=== PATIENT | female | born 1945 | race Caucasian/White ===

== ENCOUNTER 2023-05-09 16:41 | Inpatient (IN) | payer MEDICARE, OTHER, SELFPAY ==
[2023-05-09] VITALS (13 sets, daily range): BP systolic 110–152; BP diastolic 40–79; BMI 29.2; BMI 28.4
[2023-05-09 12:03] LABS: % Basophils 0.1 % (0-2); % Eosinophils 0.1 % (0-6); % Lymphocytes 1.9 % (20.5-51.1); % Monocytes 13.6 % (1.7-9.3); % Neutrophils 82.3 % (42.2-75.2); Absolute Immature Granulocytes 0.4 10^3/uL (0-0.05); Absolute Lymphocytes 0.4 10^3/uL (1.2-3.4); Absolute Monocytes 2.6 10^3/uL (0.1-0.6); Absolute Neutrophils 15.7 10^3/uL (1.4-6.5); Hematocrit 36.8 % (37.0-47.0); Hemoglobin 12.6 g/dL (12.0-16.0); Mean Corp Hgb Conc. 34.2 g/dL (33.0-37.0); Mean Corpuscular Hgb 31.3 pg (27.0-31.0); Mean Corpuscular Volume 91.5 fL (81.0-99.0); Mean Platelet Volume 12.5 fL (7.4-10.4); Nucleated Red Blood Cells % 0 %; Platelet Count 101 10^3/uL (130-400); Red Blood Cell Count 4.02 10^6/uL (4.20-5.40); Red Cell Dist. Width 14.6 % (11.5-14.5); White Blood Cell Count 19.1 10^3/uL (4.8-10.8)
[2023-05-09 12:44] LABS: ALT (SGPT) 17 U/L (0-35); AST (SGOT) 21 U/L (14-36); Albumin 4.5 g/dl (3.5-5.0); Alkaline Phosphatase 64 U/L (38-126); Blood Urea Nitrogen 15 mg/dl (7-17); Calcium 9.2 mg/dl (8.4-10.2); Carbon Dioxide 14 mmol/L (22-30); Chloride 106 mmol/L (98-107); Glucose 158 mg/dl (70-99); Potassium 3.4 mmol/L (3.5-5.1); Sodium 133 mmol/L (135-145); Total Bilirubin 1.6 mg/dl (0.2-1.3); Total Protein 7.1 g/dl (6.3-8.2); eGFR 38.27
--- NOTE | 2023-05-09 12:59 | ED.GENMED ---
History of Present Illness
<MARIA E Miles - Last Filed: 05/09/23 16:11>
General
Chief Complaint: Weakness
Source: patient
Exam Limitations: none
Time Seen by Provider: 05/09/23 12:59
Nursing documentation reviewed up to this point in time: agreed with
Travel History
Have you had any contact with someone who has COVID-19?: No
Do you have any symptoms of coronavirus? Fever > 100 degrees, chills, cough, shortness of breath, sore throat, loss of taste or smell, muscle aches, or headache?: No
History of Present Illness
History of Present Illness:
Patient is a 77 old female who presents to the ER for evaluation. Patient reports on Tuesday she started not feeling well and has been vomiting since unable to keep water down. She feels very weak. She does report that she fell 1 week ago and
landed face first and hit her head. Describes as mechanical fall. She is on blood thinners. She denies loss of conscious at that time. Since however she has been sick she has had headaches.
She complains of bruising to her face.
In addition she also has had a cough for the past 1 week. No fevers.
Past History
<MARIA E Miles - Last Filed: 05/09/23 16:11>
Past History
ED Past Medical History: Cancer, HTN, Hypercholesterolemia and Other (Multiple myeloma/remission)
ED Past Surgical History: Gynecological and Urological
Social History
Tobacco: Former smoker
Alcohol: None
Drug: None
Personal:
Living: with family
Review of Systems
<MARIA E Miles - Last Filed: 05/09/23 16:11>
Review of Systems
Allergies reviewed?: Yes
Other source history: family
All Other Systems: ROS reviewed and negative except as documented in HPI and ROS
Constitutional: Reports fatigue and chills
EENT: Reports no symptoms
Respiratory: Reports cough
Cardiac: Reports no symptoms
ABD/GI: Reports nausea and vomiting; Denies abdominal pain or diarrhea
: Reports no symptoms
Musculoskeletal: Reports other (bruising to face )
Skin: Reports no symptoms
Neurological: Reports no symptoms
Hematologic/Lymphatic: Reports no symptoms
Psychiatric: Reports no symptoms
Phy Exam
<MARIA E Miles - Last Filed: 05/09/23 16:11>
General Physical Exam
General Presentation: no apparent distress
General age: appears stated age
General Skin: warm and dry
General Habitus: elderly
General Mental: alert
General Hydration: dry mucous membranes
Cardiovascular Exam
Cardiovascular Exam: tachycardia
Pulmonary Exam
Pulmonary Exam: lungs clear and no respiratory distress
Gastrointestinal Exam
Gastrointestinal Exam: normal bowel sounds, non tender and soft
Neurological Exam
Neurological Exam: alert and oriented x3
Cornwall Coma Scale
Eye Opening: Spontaneous
Verbal Response: Oriented
Motor Response: Obeys Commands
GCS Total Score: 15
Musculoskeletal Exam
Musculoskeletal Exam: other (Scattered ecchymosis old appearing to face no obvious hematoma to head mild bruising to left anterior knee with good range of motion)
Skin Exam
Skin Exam: normal color and warm/dry
Psychiatric Exam
Psychiatric Exam: normal mood/affect
<Mian Francisco MD - Last Filed: 05/09/23 19:14>
Cornwall Coma Scale
GCS Total Score: 15
Course
<MARIA E Miles - Last Filed: 05/09/23 16:11>
Orders/Labs/Results
Orders:
Orders
05/09/23 11:43
Electrocardiogram (*1) Urgent
Reason for Study: Bradycardia / Tachycardia
EKG- Treatment ONCE
05/09/23 11:52
Complete Blood Count/With Diff Urgent
Comprehensive Metabolic Panel Urgent
05/09/23 13:18
0.9% Sodium Chloride 1000 ml [Nss] 1,000 ml IV BOLUS
05/09/23 13:19
Chest [CR Chest - 2 Views ] Urgent
Comment:
Reason For Exam: cough
05/09/23 13:21
CT Facial Bones W/o Iv Contras Urgent
Comment:
Reason For Exam: trauma
CT Head W/o Iv Contrast Urgent
Comment:
Reason For Exam: trauma
Ondansetron Injectable [Zofran] 4 mg IV NOW STA
05/09/23 13:38
Knee, Left 4 or More Views [CR Knee - Left 4 Or More View*] Urgent
Comment:
Reason For Exam: trauma
05/09/23 14:33
Blood Culture Q30M
BRE Source: Blood/Venous
Specimen Description:
Acetaminophen [Tylenol] 650 mg PO NOW STA
05/09/23 14:39
COVID-19 Antigen Urgent
Source: Nasal Swab
Influenza A+B Rapid Molecular Urgent
BRE Source: Nasal Swab
Specimen Description:
05/09/23 15:03
Lactic Acid Q4H
Comment: CANCEL 2nd LACTIC ACID IF 1st LACTIC ACID IS LESS THAN 2
Blood Culture Q30M
BRE Source: Blood/Venous
Specimen Description:
05/09/23 15:14
0.9% Sodium Chloride 1000 ml [Nss] 1,000 ml IV BOLUS
05/09/23 15:20
UA Reflex to Culture [Urinalysis Reflex To Culture] Urgent
Date Specimen was Collected: 05/09/23
Time Specimen was Collected: 15:16
Urine Microscopic Reflex Cult Urgent
Urine Culture Urgent
BRE Source: U
Specimen Description:
Date Specimen was Collected: 05/09/23
Time Specimen was Collected: 15:16
05/09/23 15:59
Azithromycin 500 mg/250 ml [Zithromax Infusion] 500 mg in 250 ml IV NOW
CefTRIAXone [Rocephin] 1,000 mg IV NOW STA
05/09/23 16:29
Admit/Transfer Patient As Directed
Co-Sign Provider:
Level of Care: Inpatient admission
Assign to:: Medical/Surgical
Physician / Group: jose enrique
Diagnosis: pneumonia
Reason for Hospitalization: pneumonia
Expected length of stay greater than two midnights?: Yes
ELOS- Estimated Length of Stay in days: 2
I certify the patient meets the requirements for IP care: Yes
Code Status As Directed
Resuscitation Status: Full Code
05/09/23 16:32
Respiratory Culture/Gram Stain Urgent
BRE Source: Sputum
Specimen Description:
Sodium Bicarbonate 50 meq IV NOW STA
05/09/23 16:33
Potassium Chloride [KCl] 40 meq 0.9% Sodium Chloride 250 ml [Nss] 250 ml IV NOW
Abnormal Lab Results
05/09/23 05/09/23
11:52 15:20
WBC 19.1 H 10^3/uL
(4.8-10.8)
RBC 4.02 L 10^6/uL
(4.20-5.40)
Hct 36.8 L %
(37.0-47.0)
MCH 31.3 H pg
(27.0-31.0)
RDW 14.6 H %
(11.5-14.5)
Plt Count 101 L 10^3/uL
(130-400)
MPV 12.5 H fL
(7.4-10.4)
Abs Immat Gran (auto) 0.4 H 10^3/uL
(0-0.05)
Absolute Neuts (auto) 15.7 H 10^3/uL
(1.4-6.5)
Absolute Lymphs (auto) 0.4 L 10^3/uL
(1.2-3.4)
Absolute Monos (auto) 2.6 H 10^3/uL
(0.1-0.6)
Immature Gran % 2.0 H %
(0-0.5)
Neutrophils % 82.3 H %
(42.2-75.2)
Lymphocytes % 1.9 L %
(20.5-51.1)
Monocytes % 13.6 H %
(1.7-9.3)
Sodium 133 L mmol/L
(135-145)
Potassium 3.4 L mmol/L
(3.5-5.1)
Carbon Dioxide 14 L* mmol/L
(22-30)
Creatinine 1.4 H mg/dL
(0.6-1.0)
Glucose 158 H mg/dl
(70-99)
Total Bilirubin 1.6 H mg/dl
(0.2-1.3)
Urine Ketones 3+ A
(Negative)
Ur Occult Blood Reflex 3+ A
(Negative)
Urine Bacteria (Reflex) Moderate A
(Negative)
Urine Glucose 3+ A
(Negative)
Urine Albumin (Reflex) 2+ A
(Neg - Trace)
05/09/23 11:52
05/09/23 11:52
Vital Signs
Initial and Last Documented VS:
Initial Vital Signs
Temp Pulse Resp BP Pulse Ox
98.0 F 128 20 142/71 93
05/09/23 11:40 05/09/23 11:40 05/09/23 11:40 05/09/23 11:40 05/09/23 11:40
Last Documented Vital Signs
Temp Pulse Resp BP Pulse Ox
98.0 F 97 22 110/49 95
05/09/23 11:40 05/09/23 17:30 05/09/23 14:03 05/09/23 17:01 05/09/23 17:30
Quality Control Representative consulted with Physician
Quality Control Representative consulted with physician?: Yes
Name of Physician Consulted: [email or web address]
<Mian Francisco MD - Last Filed: 05/09/23 19:14>
Orders/Labs/Results
Orders:
Orders
05/09/23 11:43
Electrocardiogram (*1) Urgent
Reason for Study: Bradycardia / Tachycardia
EKG- Treatment ONCE
05/09/23 11:52
Complete Blood Count/With Diff Urgent
Comprehensive Metabolic Panel Urgent
05/09/23 13:18
0.9% Sodium Chloride 1000 ml [Nss] 1,000 ml IV BOLUS
05/09/23 13:19
Chest [CR Chest - 2 Views ] Urgent
Comment:
Reason For Exam: cough
05/09/23 13:21
CT Facial Bones W/o Iv Contras Urgent
Comment:
Reason For Exam: trauma
CT Head W/o Iv Contrast Urgent
Comment:
Reason For Exam: trauma
Ondansetron Injectable [Zofran] 4 mg IV NOW STA
05/09/23 13:38
Knee, Left 4 or More Views [CR Knee - Left 4 Or More View*] Urgent
Comment:
Reason For Exam: trauma
05/09/23 14:33
Blood Culture Q30M
BRE Source: Blood/Venous
Specimen Description:
Acetaminophen [Tylenol] 650 mg PO NOW STA
05/09/23 14:39
COVID-19 Antigen Urgent
Source: Nasal Swab
Influenza A+B Rapid Molecular Urgent
BRE Source: Nasal Swab
Specimen Description:
05/09/23 15:03
Lactic Acid Q4H
Comment: CANCEL 2nd LACTIC ACID IF 1st LACTIC ACID IS LESS THAN 2
Blood Culture Q30M
BRE Source: Blood/Venous
Specimen Description:
05/09/23 15:14
0.9% Sodium Chloride 1000 ml [Nss] 1,000 ml IV BOLUS
05/09/23 15:20
UA Reflex to Culture [Urinalysis Reflex To Culture] Urgent
Date Specimen was Collected: 05/09/23
Time Specimen was Collected: 15:16
Urine Microscopic Reflex Cult Urgent
Urine Culture Urgent
BRE Source: U
Specimen Description:
Date Specimen was Collected: 05/09/23
Time Specimen was Collected: 15:16
05/09/23 15:59
Azithromycin 500 mg/250 ml [Zithromax Infusion] 500 mg in 250 ml IV NOW
CefTRIAXone [Rocephin] 1,000 mg IV NOW STA
05/09/23 16:29
Admit/Transfer Patient As Directed
Co-Sign Provider:
Level of Care: Inpatient admission
Assign to:: Medical/Surgical
Physician / Group: jose enrique
Diagnosis: pneumonia
Reason for Hospitalization: pneumonia
Expected length of stay greater than two midnights?: Yes
ELOS- Estimated Length of Stay in days: 2
I certify the patient meets the requirements for IP care: Yes
Code Status As Directed
Resuscitation Status: Full Code
05/09/23 16:32
Respiratory Culture/Gram Stain Urgent
BRE Source: Sputum
Specimen Description:
Sodium Bicarbonate 50 meq IV NOW STA
05/09/23 16:33
Potassium Chloride [KCl] 40 meq 0.9% Sodium Chloride 250 ml [Nss] 250 ml IV NOW
Abnormal Lab Results
05/09/23 05/09/23
11:52 15:20
WBC 19.1 H 10^3/uL
(4.8-10.8)
RBC 4.02 L 10^6/uL
(4.20-5.40)
Hct 36.8 L %
(37.0-47.0)
MCH 31.3 H pg
(27.0-31.0)
RDW 14.6 H %
(11.5-14.5)
Plt Count 101 L 10^3/uL
(130-400)
MPV 12.5 H fL
(7.4-10.4)
Abs Immat Gran (auto) 0.4 H 10^3/uL
(0-0.05)
Absolute Neuts (auto) 15.7 H 10^3/uL
(1.4-6.5)
Absolute Lymphs (auto) 0.4 L 10^3/uL
(1.2-3.4)
Absolute Monos (auto) 2.6 H 10^3/uL
(0.1-0.6)
Immature Gran % 2.0 H %
(0-0.5)
Neutrophils % 82.3 H %
(42.2-75.2)
Lymphocytes % 1.9 L %
(20.5-51.1)
Monocytes % 13.6 H %
(1.7-9.3)
Sodium 133 L mmol/L
(135-145)
Potassium 3.4 L mmol/L
(3.5-5.1)
Carbon Dioxide 14 L* mmol/L
(22-30)
Creatinine 1.4 H mg/dL
(0.6-1.0)
Glucose 158 H mg/dl
(70-99)
Total Bilirubin 1.6 H mg/dl
(0.2-1.3)
Urine Ketones 3+ A
(Negative)
Ur Occult Blood Reflex 3+ A
(Negative)
Urine Bacteria (Reflex) Moderate A
(Negative)
Urine Glucose 3+ A
(Negative)
Urine Albumin (Reflex) 2+ A
(Neg - Trace)
05/09/23 11:52
05/09/23 11:52
Vital Signs
Initial and Last Documented VS:
Initial Vital Signs
Temp Pulse Resp BP Pulse Ox
98.0 F 128 20 142/71 93
05/09/23 11:40 05/09/23 11:40 05/09/23 11:40 05/09/23 11:40 05/09/23 11:40
Last Documented Vital Signs
Temp Pulse Resp BP Pulse Ox
98.0 F 97 22 110/49 95
05/09/23 11:40 05/09/23 17:30 05/09/23 14:03 05/09/23 17:01 05/09/23 17:30
<MARIA E Miles - Last Filed: 05/09/23 16:11>
MDM/Problems Addressed
Differential Diagnosis Includes:
Not limited to viral syndrome, pneumonia head injury, facial contusions, dehydration electrolyte abnormality, bronchitis
MDM/Problems Addressed:
Patient is a 77-year-old female who presents to the ER for evaluation. Patient has had a cough last week but on Tuesday night developed vomiting and has been vomiting since. Unable to tolerate fluids. She complains of feeling very weak. She
reports a mechanical fall 1 week ago landing on her face patient with scattered bruising. Patient had a CAT scan which was negative for any bleeding. Patient presents however with audible cough tachycardic appears dehydrated. Patient was given
fluids along with Zofran no further vomiting. Patient was found to be COVID and influenza negative. Chest x-ray does show a patchy opacity involving the left lower lobe suspicious for pneumonia. With symptoms of cough we will treat for
community-acquired pneumonia IV Rocephin and Zithromax ordered. Blood culture sent. Lactic negative at 1.0. Patient does however have elevated white count of 19,000 with a stable hemoglobin low platelets however of 101,000. Patient has a low
bicarb of 14 potassium slight low at 3.4 creatinine 1.4.
Patient evaluated by ED physician. Patient was given fluids and decreasing. Repeat temp done by myself is 98.1. Will require admission for dehydration metabolic acidosis pneumonia.
<MARIA E Miles - Last Filed: 05/09/23 16:11>
*Radiology
Radiology exam reviewed: radiology read reviewed
*Pulse Oximetry
Patient hypoxic: yes
*Critical Care Note
Total Time (30-74mins, 75-104mins- exclusive of procedures): Not Applicable
<Mian Francisco MD - Last Filed: 05/09/23 19:14>
*EKG
Interpreted by ED Provider?: Yes
EKG Intrepretation Date: 05/09/23
Heart Rate: 125
Rate: tachycardiac
Rhythm: sinus
Pierre Part: left axis deviation
QRS Pattern: right bundle branch block
ED Attending Note
<MARIA E Miles - Last Filed: 05/09/23 16:11>
-
Portions of this chart may have been created with voice recognition software.� Occasional wrong word or��sound alike� substitutions may have occurred due to the inherent limitations of voice recognition software.
<Mian Francisco MD - Last Filed: 05/09/23 19:14>
ED Attending Note
Patient seen and examined by attending physician: Yes
ED Attending Note:
Patient presents to emergency department secondary to worsening headache, along with persistent nausea and vomiting as well as body ache over the past 3 days. Patient reports falling after losing balance 1 week ago. Patient has had headaches since
then, but vomiting did not start until 3 days ago. In addition, patient has had intermittent cough with shortness of breath over the past 1 week. Denies fever or chills. Denies blurred vision. Denies dizziness. Denies chest pain. Denies
abdominal pain. Denies diarrhea. Patient states that she has not been able to keep anything down over the past 48 hours. Patient is complaining of significant generalized weakness. Patient was evaluated primary care physician office today and
referred to ED for an evaluation.
Physical Exam
General: mild distress, not acutely ill. afebrile. weak appearing
Head: resolving ecchymosis noted over face, without focal tenderness.
Neck: supple. normal range of motion.
Heart: s1/s2 regular rate and rhythm, no murmur. equal radial pulses.
Lungs: no acute respiratory distress. clear bilaterally
Abdomen: normal bowel sounds. not tender.
Neuro: alert and oriented. no focal neurological deficits
Skin: no rash
Psychiatric: well kept. interactive and cooperative
Extremities: ecchymosis/tenderness noted over left patella, without sig. swelling.
History and exam concerning for moderate postconcussive syndrome, resulting in dehydration, secondary to poor oral intake.
CT head and face pending along with chest x-ray. Blood work with significant metabolic acidosis, likely secondary to dehydration. Patient will be hydrated given medication for pain and nausea, and reassessed.
CT report and CXR report reviewed. Will admit for further evaluation and treatment.
Discharge Plan
Departure
Patient Disposition: Admit
Date of Disposition: 05/09/23
Time of Disposition: 16:08
Admit to: Med/Surg
Admit to doctor: hospitalist
Presentation/result/management discussed w/ accepting MD/DO: Hospitalist
Patient with high blood pressure during this ER visit?: No
Condition: Fair
Covid-19: Negative COVID-19
Discharge Problem:
Pneumonia, Acute dehydration, Contusion of face, Thrombocytopenia
Interventions
Interventions:
*Risk Screen - Suicide Last Done: 05/09/23 13:00
*Neglect/Abuse Screening Last Done: 05/09/23 13:00
ED- Fall Risk Assessment Last Done: 05/09/23 13:15
*ED COVID-19 Vaccine History Last Done: 05/09/23 11:40
ED- Cardiac Assessment Last Done: 05/09/23 13:29
ED- Neurological Assessment Last Done: 05/09/23 13:28
ED- Pulmonary Assessment Last Done: 05/09/23 13:28
[2023-05-09] MEDS: ZOFRAN 4 MG IV (13:32)
[2023-05-09] MEDS: NSS 1000 IV ×2 (13:33→15:19)
[2023-05-09] MEDS: TYLENOL 650 MG PO (14:35)
[2023-05-09 15:14] LABS: COVID-19 Antigen Negative (Negative)
[2023-05-09 15:32] LABS: Urine Albumin 2+ (Neg - Trace); Urine Bilirubin Negative (Negative); Urine Character Clear (Clear); Urine Color Yellow; Urine Glucose 3+ (Negative); Urine Ketone 3+ (Negative); Urine Leukocyte Negative (Negative); Urine Nitrite Negative (Negative); Urine Occult Blood 3+ (Negative); Urine Urobilinogen Negative (Neg - 1+)
[2023-05-09 16:05] LABS: Urine Bacteria Moderate (Negative); Urine Red Blood Cell 0-2 /HPF (0-2); Urine White Cell 0-2 /HPF (0-5)
[2023-05-09] MEDS: ROCEPHIN 1000 MG IV (16:08)
[2023-05-09] MEDS: ZITHROMAX INFUSION 250 IV (16:08)
--- NOTE | 2023-05-09 16:34 | HPS.HSE ---
Family Physician
-
Family Physician: Ar Montague
Chief Complaint
-
cough, vomiting
History of Present Illness
77-year-old female past medical history of multiple myeloma, chronic kidney disease hypertension, hyperlipidemia, GERD, presenting for weakness and vomiting. 2 days ago she started feeling unwell and has been vomiting since and unable to keep water
down. She feels very weak. Denies abdominal pain or diarrhea. She did have a mechanical fall from tripping 1 week ago and landed face first and hit her head with some facial bruising. Denied any loss of consciousness at the time. She has been
having some headache over the past few days. She developed a productive cough 4 days ago but denies any shortness of breath or chest pain. She denies any fevers. Denies any sinus pressure or nasal congestion. Does feel cold but denies fevers or
chills. Denies eating any restaurant or outside food recently. Denies any recent antibiotic use.
She is a former smoker. Denies alcohol use.
Medical History
Past Medical History
Past Medical History: Reports Other (multiple myeloma, chronic kidney disease hypertension, hyperlipidemia, GERD)
Past Surgical History: Reports Other (Gynecological and Urological)
Social History
Tobacco: Former Smoker
Alcohol: None
Drug: None
Family History
Family History: Not pertinent
Allergies / Home Medications
Allergies reflects when Allergies were last updated in [facility].
Home Medications with original date entered in [facility]
Allergy/Medication List:
Allergies
Allergy/AdvReac Type Severity Reaction Status Date / Time
iodine Allergy Hives Verified 05/09/23 11:42
Penicillins Allergy Rash Verified 05/09/23 11:42
tetanus toxoid, adsorbed Allergy Swelling Verified 05/09/23 11:42
Home Medications
gabapentin 300 mg capsule 300 mg PO DAILY Neurological Condition 05/21/21
gabapentin 300 mg capsule 600 mg PO HS Neurological Condition 05/21/21
omeprazole 20 mg capsule,delayed release 20 mg PO DAILY Gastrointestinal issue 05/21/21
simvastatin 20 mg tablet 20 mg PO HS High cholesterol 05/21/21
acetaminophen 500 mg tablet (Acetaminophen Extra Strength) 1,000 mg PO DAILYPRN PRN mild pain 07/10/21
aspirin 81 mg tablet,delayed release 81 mg PO HS 07/10/21
Oil Of Oregano 2 cap PO QPM 05/09/23
albuterol sulfate 90 mcg/actuation aerosol inhaler (Ventolin HFA) 2 puff inhalation R Q6HPRN PRN sob 05/09/23
apple cider vinegar 2 tab PO HS 05/09/23
cholecalciferol (vitamin D3) 125 mcg (5,000 unit) tablet 125 mcg PO QPM 05/09/23
cyanocobalamin (vitamin B-12) 1 tab PO QPM 05/09/23
fluticasone 250 mcg-salmeterol 50 mcg/dose blistr powdr for inhalation (Wixela Inhub) 1 inh inhalation R BID 05/09/23
latanoprost 0.005 % eye drops 1 drp BOTH EYES HS 05/09/23
turmeric 400 mg capsule 400 mg PO QPM 05/09/23
Review of Systems
-
History Source: Patient
A 12 point ROS was completed and negative except as noted: Yes
Constitutional: Reports No Symptoms
EENT: Reports No Symptoms
Respiratory: Reports See HPI
Cardiac: Reports No Symptoms
Abdomen/GI: Reports See HPI
: Reports No Symptoms
Musculoskeletal: Reports No Symptoms
Skin: Reports No Symptoms
Neurological: Reports No Symptoms
Endocrine: Reports No Symptoms
Hematologic/Lymphatic: Reports No Symptoms
Psych: Reports No Symptoms
Physical Exam
Vital Signs
Vital Signs
Temp Pulse Resp BP Pulse Ox
98.0 F 117 22 128/58 90
05/09/23 11:40 05/09/23 14:03 05/09/23 14:03 05/09/23 14:03 05/09/23 14:03
Physical Exam
General: Well Developed, Well Nourished and No Apparent Distress
HEENT: NormoCephalic, Moist mucous membranes and Atraumatic
Respiratory: Clear
Cardiac: S1/S2 and Regular Rhythm; No Murmur or Rub
GI: Soft, Non Tender, Non Distended and Normal Bowel Sounds; No Organomegaly
Rectal: Deferred by Provider
Musculoskeletal: No Clubbing, No Cyanosis and No Edema
Skin: No Rash
Neuro: Nonfocal/grossly intact
Laboratory Results
-
05/09/23 11:52
05/09/23 11:52
Laboratory Results
Lactic Acid 1.0 mmol/L (0.7-2.0) 05/09/23 15:03
Total Bilirubin 1.6 mg/dl (0.2-1.3) H 05/09/23 11:52
AST 21 U/L (14-36) 05/09/23 11:52
ALT 17 U/L (0-35) 05/09/23 11:52
Alkaline Phosphatase 64 U/L (38-126) 05/09/23 11:52
Data Reviewed
-
Lab Data: Labs Reviewed by me
Old Records: Reviewed
Impression/Plan
-
IMPRESSION:
PLAN:
# Sepsis (tachycardia, leukocytosis) secondary to left lower lobe pneumonia
-COVID, influenza negative
-Check sputum culture
-Ceftriaxone, azithromycin
-DuoNebs given history of asthma although no wheezing on exam currently to warrant steroids at this time
# Vomiting likely secondary to pneumonia/viral illness
-Zofran as needed
-N.p.o.
# Non-anion gap metabolic acidosis secondary to vomiting
-Bicarb push
-IV fluids with bicarb drip
# Hypokalemia secondary to vomiting
-Replete potassium
# Thrombocytopenia secondary to sepsis
-Platelets of 101, continue to monitor
# Recent mechanical fall
-X-ray left knee no acute abnormality
# Right frontal scalp hematoma from recent fall
-CT head and facial bones shows no acute abnormality
History of multiple myeloma in remission
Asthma
-DuoNebs every 6 hours
Chronic kidney disease
-Creatinine stable at 1.4
Essential hypertension
-Continue prophylactic aspirin
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
-Continue gabapentin
Hyperlipidemia
-Continue statin
GERD
-Continue omeprazole
Full code
DVT prophylaxis�heparin
Regular diet
[2023-05-09] MEDS: SODIUM BICARBONATE 50 MEQ IV (17:17)
[2023-05-09] MEDS: KCL 270 MEQ IV (17:17)
[2023-05-09] MEDS: SODIUM BICARBONATE 1150 MEQ IV (22:53)
--- NOTE | 2023-05-09 22:55 | PTCARENOTE ---
Received patient from ER. stable vitals. 93% on 2L n/c. Patient AAOx3, weak. No c/o pain. SOB with exertion. Bruises noted on face/ left knee. POC reviewed with patient.
[2023-05-09] MEDS: HEPARIN 5000 UNITS SC (23:25)
[2023-05-09] MEDS: VITAMIN D3 (cholecalciferol) PO ×2 (23:25→23:29)
[2023-05-09] MEDS: LIPITOR PO ×2 (23:25→23:30)
[2023-05-09] MEDS: NEURONTIN PO ×2 (23:25→23:30)
[2023-05-09] MEDS: ASPIR LOW (ENTERIC COATED) PO ×2 (23:25→23:30)
--- NOTE | 2023-05-10 | PTCARENOTE ---
No Xalatan eye drop available tonight and would be available tomorrow per pharmacy.
[2023-05-10] MEDS: TYLENOL 650 MG PO ×2 (00:20→16:13)
[2023-05-10] MEDS: XALATAN OPHTHALMIC SOLUTION BOTH EYES (00:25)
[2023-05-10] MEDS: ADVAIR HFA 115/21 MCG INHALER INH (02:42)
[2023-05-10 06:09] LABS: % Basophils 0.1 % (0-2); % Immature Granulocytes 3.7 % (0-0.5); % Monocytes 16.1 % (1.7-9.3); % Neutrophils 78.1 % (42.2-75.2); Absolute Immature Granulocytes 0.7 10^3/uL (0-0.05); Absolute Lymphocytes 0.4 10^3/uL (1.2-3.4); Absolute Monocytes 3.1 10^3/uL (0.1-0.6); Hematocrit 33.4 % (37.0-47.0); Hemoglobin 10.5 g/dL (12.0-16.0); Mean Corp Hgb Conc. 31.4 g/dL (33.0-37.0); Mean Corpuscular Hgb 30.6 pg (27.0-31.0); Mean Corpuscular Volume 97.4 fL (81.0-99.0); Nucleated Red Blood Cells % 0 %; Red Blood Cell Count 3.43 10^6/uL (4.20-5.40); White Blood Cell Count 19.2 10^3/uL (4.8-10.8)
[2023-05-10 06:38] LABS: ALT (SGPT) 14 U/L (0-35); AST (SGOT) 20 U/L (14-36); Albumin 3.4 g/dl (3.5-5.0); Alkaline Phosphatase 60 U/L (38-126); Blood Urea Nitrogen 17 mg/dl (7-17); Calcium 8.1 mg/dl (8.4-10.2); Carbon Dioxide 16 mmol/L (22-30); Chloride 111 mmol/L (98-107); Estimated Creatinine Clearance 30 ml/min; Glucose 119 mg/dl (70-99); Potassium 4.2 mmol/L (3.5-5.1); Sodium 139 mmol/L (135-145); Total Bilirubin 0.9 mg/dl (0.2-1.3); Total Protein 5.7 g/dl (6.3-8.2); eGFR 35.23
[2023-05-10 07:07] LABS: Mean Platelet Volume 12.8 fL (7.4-10.4)
[2023-05-10 07:08] LABS: Platelet Count 81 10^3/uL (130-400)
[2023-05-10] MEDS: ADVAIR HFA 115/21 MCG INHALER 2 PUFF INH ×2 (07:42→20:41)
[2023-05-10 08:05] VITALS: BP 101/47
[2023-05-10] MEDS: HEPARIN 5000 UNITS SC ×2 (08:40→19:16)
[2023-05-10] MEDS: PROTONIX 40 MG PO (08:41)
[2023-05-10] MEDS: NEURONTIN 300 MG PO (08:43)
--- NOTE | 2023-05-10 09:48 | W.PN.HOSP.TC ---
Today's Communication/Plan
-
We did add steroids at this time as does have some bronchospasm on auscultation
Continue neb treatments and oxygen
Continue broad-spectrum antibiotic coverage
Consult pulmonary input for input
Assessment / Plan
Assessment / Plan
7-year-old female past medical history of multiple myeloma, chronic kidney disease hypertension, hyperlipidemia, GERD, presenting for weakness and vomiting. 2 days ago she started feeling unwell and has been vomiting since and unable to keep water
down. She feels very weak. Denies abdominal pain or diarrhea. She did have a mechanical fall from tripping 1 week ago and landed face first and hit her head with some facial bruising. Denied any loss of consciousness at the time. She has been
having some headache over the past few days. She developed a productive cough 4 days ago but denies any shortness of breath or chest pain. She denies any fevers. Denies any sinus pressure or nasal congestion. Does feel cold but denies fevers or
chills. Denies eating any restaurant or outside food recently. Denies any recent antibiotic use.
She is a former smoker. Denies alcohol use.
# Sepsis (tachycardia, leukocytosis) secondary to left lower lobe pneumonia
-COVID, influenza negative
-Check sputum culture
-Obtain procalcitonin pending
-Ceftriaxone, azithromycin
-DuoNebs given history of asthma although no wheezing on exam currently to warrant steroids at this time/did elicit wheezing on my exam this morning with bilateral congestion may benefit from steroid management will consult on pulmonary service also
# Vomiting likely secondary to pneumonia/viral illness
-Zofran as needed
-N.p.o.>> trial of diet today
# Non-anion gap metabolic acidosis secondary to vomiting
-Bicarb push
-IV fluids with bicarb drip to continue
-If no response in next 24 hours we will obtain Nephrology input
# Hypokalemia secondary to vomiting
-Replete potassium
# Thrombocytopenia secondary to sepsis
-Platelets of 101, continue to monitor
# Recent mechanical fall
-X-ray left knee no acute abnormality
# Right frontal scalp hematoma from recent fall
-CT head and facial bones shows no acute abnormality
# Asymptomatic bacteriuria
-Await blood cultures and urine cultures
-No need to change present course of antibiotics for her respiratory infection that should cover
History of multiple myeloma in remission
Asthma
-DuoNebs every 6 hours
Chronic kidney disease
-Creatinine stable at 1.4
-
Essential hypertension
-Continue prophylactic aspirin
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
-Continue gabapentin
Hyperlipidemia
-Continue statin
GERD
-Continue omeprazole
Full code
DVT prophylaxis�heparin
Regular diet
Anticipated Discharge: 24 - 48 hours
Subjective/Interval History
-
Date of Service: May 10, 2023
No further nausea or vomiting overnight has congested cough and some wheezing overnight some relief with neb treatments admits to a past medical history also states her myeloma has been in remission for some time. Denies febrile course or chills.
Reason for fall last week was by description mechanical.
Objective Data
-
Labs:
Laboratory Results
05/10/23
04:55
WBC 19.2 H
Hgb 10.5 L
Hct 33.4 L
Plt Count 81 L
Sodium 139
Potassium 4.2
Chloride 111 H
Carbon Dioxide 16 L
BUN 17
Creatinine 1.5 H
Glucose 119 H
Calcium 8.1 L
Total Bilirubin 0.9
AST 20
ALT 14
Alkaline Phosphatase 60
Vital Signs:
Vital Signs
Temp Pulse Resp BP Pulse Ox
98 F 84 20 101/47 96
05/10/23 08:05 05/10/23 08:05 05/10/23 08:05 05/10/23 08:05 05/10/23 08:05
Review of Systems
-
History Source: Patient and Family (Spouse at bedside)
Constitutional: Reports Weakness
Respiratory: Reports Cough and Wheezing
Cardiac: Reports No Symptoms
Physical Exam
-
General: Well Developed
HEENT: Normocephalic
Respiratory: Wheezes and Rhonchi
Cardiac: Regular Rhythm
GI: Soft
Data Reviewed
-
Total Time Spent with Patient (in minutes): 56
Diagnostic Radiology: Report Reviewed by me (Reviewed x-rays of facial bones also CT of the head and knee)
Labs: Labs Reviewed by me (White count is elevated 19.2/bicarb remains depressed although improved from admission at 16/creatinine same as admission 1.5)
--- NOTE | 2023-05-10 10:15 | CON.PUL ---
Consultation
Consultation Request
Date/Time Consultation Requested: 05/10/23-10 AM
Date/Time Consultation Performed: 05/10/23-10 AM
Requesting Provider: Dr. West
Performing Provider: Dr. Mchugh
Reason for Consultation: Shortness of breath
Medical History
-
Chief Complaint: Shortness of breath
History of Present Illness:
77-year-old female with history of multiple myeloma, chronic kidney disease, hypertension, hyperlipidemia, GERD who and asthma presented with weakness and vomiting and had shortness of breath with hypoxemia and thus pulmonary was consulted 05/10/2023.
She complains of chest congestion, mostly nonproductive cough, dyspnea on exertion, and some wheezing. She denies chest pain, pleurisy, hemoptysis, abdominal pain, nausea, weakness, or increased lower extremity swelling.
Past Medical History
Past Medical History: None (Multiple myeloma. Former smoker. Chronic kidney disease. Hypertension. Hyperlipidemia. GERD.)
Social History
Tobacco: Former Smoker (51-whle-njuw quit 28 years old)
Alcohol: None
Drug: None
Living: With Family
Occupational Exposures: No known asbestos exposure
Environmental Exposures: No known tuberculosis exposure
Family History
Family History: Reviewed & Not Pertinent and Other (Sibling with liver cancer and diabetes. Mother dementia. Father COPD.)
Allergies / Home Medications
Allergies
Allergy/AdvReac Type Severity Reaction Status Date / Time
iodine Allergy Hives Verified 05/09/23 11:42
Penicillins Allergy Rash Verified 05/09/23 11:42
tetanus toxoid, adsorbed Allergy Swelling Verified 05/09/23 11:42
Home Medications
�Medication �Instructions �Recorded �Confirmed �Last Taken �Type
gabapentin 300 mg capsule 300 mg PO DAILY Neurological 05/21/21 05/09/23 2 Days Ago History
Condition ~05/07/23
gabapentin 300 mg capsule 600 mg PO HS Neurological Condition 05/21/21 05/09/23 2 Days Ago History
~05/07/23
omeprazole 20 mg capsule,delayed 20 mg PO DAILY Gastrointestinal 05/21/21 05/09/23 2 Days Ago History
release issue ~05/07/23
simvastatin 20 mg tablet 20 mg PO HS High cholesterol 05/21/21 05/09/23 2 Days Ago History
~05/07/23
acetaminophen 500 mg tablet 1,000 mg PO DAILYPRN PRN mild pain 07/10/21 05/09/23 07/21/21 History
(Acetaminophen Extra Strength)
aspirin 81 mg tablet,delayed 81 mg PO HS Blood Clot 07/10/21 05/09/23 2 Days Ago History
release Prevention/Tx ~05/07/23
Oil Of Oregano 2 cap PO QPM Supplement 05/09/23 05/09/23 2 Days Ago History
~05/07/23
albuterol sulfate 90 mcg/actuation 2 puff inhalation R Q6HPRN PRN sob 05/09/23 05/09/23 05/09/23 History
aerosol inhaler (Ventolin HFA)
apple cider vinegar 2 tab PO HS Supplement 05/09/23 05/09/23 2 Days Ago History
~05/07/23
cholecalciferol (vitamin D3) 125 125 mcg PO QPM Supplement 05/09/23 05/09/23 2 Days Ago History
mcg (5,000 unit) tablet ~05/07/23
cyanocobalamin (vitamin B-12) 1 tab PO QPM Supplement 05/09/23 05/09/23 2 Days Ago History
~05/07/23
fluticasone 250 mcg-salmeterol 50 1 inh inhalation R BID 05/09/23 05/09/23 05/09/23 History
mcg/dose blistr powdr for Lung/Breathing Issues
inhalation (Wixela Inhub)
latanoprost 0.005 % eye drops 1 drp BOTH EYES HS Eye Condition 05/09/23 05/09/23 2 Days Ago History
~05/07/23
turmeric 400 mg capsule 400 mg PO QPM Supplement 05/09/23 05/09/23 2 Days Ago History
~05/07/23
Review of Systems
-
Unable to Obtain full review of systems at this time due to: Other (Per HPI)
Vitals / Labs / Diagnostic Testing
Vital Signs
Temp Pulse Resp BP Pulse Ox
98 F 84 20 101/47 96
05/10/23 08:05 05/10/23 08:05 05/10/23 08:05 05/10/23 08:05 05/10/23 08:05
Lab Data
05/10/23 04:55
05/10/23 04:55
Microbiology
05/09/23 14:39 Nasal Swab Influenza Types A & B (DIXIE) - Final
Negative for Influenza A & B, NAAT
Negative results must be combined with clinical observations
and patient history.
Nucleic Acid Amplification test (NAAT)performed on the
[employer] platform.
Diagnostic Testing:
Physical Exam
-
Exam:
Well-nourished and well-developed in no apparent distress
HEENT-atraumatic, normocephalic
Neck-supple, no JVD, no bruit
Heart-regular rate and rhythm-no murmurs, rubs or gallops
Chest-clear to auscultation, no wheezes, crackles
Back-no tenderness
Abdomen-soft, nontender, nondistended, no hepatosplenomegaly
Extremities-no cyanosis, clubbing, edema and good peripheral pulses
Integument-intact, no rashes, lesions or ecchymosis
Neurology-alert and oriented, nonfocal motor and sensory exam
Assessment
-
77-year-old female with history of multiple myeloma, chronic kidney disease, hypertension, hyperlipidemia, GERD who and asthma presented with weakness and vomiting and had shortness of breath with hypoxemia and thus pulmonary was consulted 05/10/2023.
Left lower lobe pneumonia
Asthma with acute exacerbation
Leukocytosis-WBC 19.2
Mild kvckfa-oiettgmmsb-hmlgvrjyny 10.8
Thrombocytopenia-platelet 81
Nausea and vomiting
Nongap metabolic acidosis
Hypokalemia
Mild hyperglycemia-blood sugar 158
Recent mechanical fall
Right frontal scalp hematoma from recent fall
Conditions present prior to admission:
Multiple myeloma-in remission
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
Former smoker.
Asthma-followed by Dr. Jimenez-maintained on Advair 250/50 and albuterol
Seasonal allergies
History of breast cancer
History of bladder cancer
Obesity
Paraesophageal hernia
Chronic kidney disease.
Hypertension.
Hyperlipidemia.
GERD.
Cataract surgery. Left breast lumpectomy 2014. Paraesophageal hernia repair 2015. TURBT for bladder cancer. Left shoulder repair with biceps tendectomy 2021.
Plan
Respiratory decompensation felt to be from pneumonia and asthma exacerbation
Supplemental oxygen as needed-not on home oxygen
Assess discharge supplemental oxygen needs
Aspiration precautions
Mucolytic's
Nebulizers
Decadron 4 mg IV every 12 hours-temporarily increased to every 8 hours
Advair 115/21 continues
Follow radiographically
Check cultures
Sputum culture
Empiric antibiotics to cover community-acquired sources including atypicals-ceftriaxone and azithromycin initiated
Follow hemoglobin and platelet count
Transfuse as needed
Replace electrolytes
Monitor renal function
Monitor blood sugar
Insulin supplementation if needed
DVT prophylaxis-on heparin
GI prophylaxis-on pantoprazole
Early nutrition
Early mobilization
Reviewed with nursing and at the bedside
Last saw Dr. Jimenez 05/18/22 and has appointment with PFT on 05/24/2023 at 8 AM
Diagnostic data:
Chest x-ray 05/21/2021-NAD
Chest x-ray 05/09/2023-left lower lobe pneumonia
CT scan of the abdomen-04/11/2017: (Images reviewed of lung bases) lung bases were clear (my review SDG).
PET scan-03/01/18: No soft tissue focus of FDG uptake suspicious for malignancy.����
Pulmonary function studies 05/13/22: Spirometry demonstrated mild obstructive lung disease with small airways obstruction. The forced vital capacity was 2.44 L or 96% of predicted. The FEV1 was 1.60 L or 85% of predicted. The FEV1/FVC ratio was 66%
postbronchodilator. Small airways obstruction was present. The midlung flows were 48% of predicted and improved 19% postbronchodilator. The lung volumes revealed a low normal total lung capacity of 3.82 L or 80% predicted. The diffusing capacity was
mildly reduced at 14.2 or 73% of predicted. When adjusted for alveolar volume, diffusing capacity normalized to 88%
6 minute walk test-05/18/22: Her resting room air oxygen saturation was 97% and declined to 95% on the 6 minute walk test which covered 900 feet. Her maximum heart rate was 117 bpm. Her perceived dyspnea was minimal at 0.5 on a 10 point scale.
���
Data Reviewed
-
PFT: Report reviewed by me
EKG: Report reviewed by me
Radiology: Report reviewed by me
CT Scan: Report reviewed by me
Medical Tests (Nuc Med, Echo etc): Report reviewed by me
Labs: Labs reviewed by me
Old Records: Reviewed
Total Time Spent with Patient (in minutes): 65
[2023-05-10] MEDS: DUONEB 3 ML INH ×3 (11:14→20:41)
[2023-05-10] MEDS: DECADRON 4 MG IV ×2 (11:22→19:18)
[2023-05-10 11:46] LABS: Procalcitonin 4.46 ng/ml (0.0-0.25)
[2023-05-10] MEDS: SODIUM BICARBONATE 1150 MEQ IV (13:45)
[2023-05-10 16:04] VITALS: BP 119/60
[2023-05-10] MEDS: STERILE WATER FOR INJECTION 10 ML IV (16:10)
[2023-05-10] MEDS: ROCEPHIN 1000 MG IV (16:10)
[2023-05-10] MEDS: ZITHROMAX INFUSION 250 IV (16:12)
--- NOTE | 2023-05-10 16:25 | CM ---
Alert awake oriented patient who lives with Dequan in a 2 story home with 1 step to enter and bath and bed room on first floor. She is independent in driving working and all activities of daily living.Offered VN she declined.
No SNF/VN hx
[facility]
PCP Dr Ar Montague
PLAN Home no needs
[2023-05-10] MEDS: VITAMIN D3 (cholecalciferol) 125 MCG PO (17:26)
[2023-05-10] MEDS: LIPITOR 10 MG PO (21:05)
[2023-05-10] MEDS: ASPIR LOW (ENTERIC COATED) 81 MG PO (21:05)
[2023-05-10] MEDS: NEURONTIN 600 MG PO (21:05)
[2023-05-10] MEDS: XALATAN OPHTHALMIC SOLUTION 1 DROP BOTH EYES (21:31)
[2023-05-10 23:00] VITALS: BP 121/69
[2023-05-11] MEDS: DECADRON 4 MG IV ×3 (03:31→19:28)
[2023-05-11] MEDS: TYLENOL 650 MG PO (03:34)
[2023-05-11 05:59] LABS: Hematocrit 28.9 % (37.0-47.0); Hemoglobin 9.4 g/dL (12.0-16.0); Mean Corp Hgb Conc. 32.5 g/dL (33.0-37.0); Mean Corpuscular Hgb 30.7 pg (27.0-31.0); Mean Corpuscular Volume 94.4 fL (81.0-99.0); Platelet Count 83 10^3/uL (130-400); Red Blood Cell Count 3.06 10^6/uL (4.20-5.40); Red Cell Dist. Width 14.6 % (11.5-14.5); White Blood Cell Count 9.6 10^3/uL (4.8-10.8)
[2023-05-11 06:24] LABS: Blood Urea Nitrogen 23 mg/dl (7-17); Calcium 7.6 mg/dl (8.4-10.2); Carbon Dioxide 25 mmol/L (22-30); Chloride 104 mmol/L (98-107); Estimated Creatinine Clearance 32 ml/min; Glucose 155 mg/dl (70-99); Sodium 135 mmol/L (135-145); eGFR 38.27
[2023-05-11] MEDS: ADVAIR HFA 115/21 MCG INHALER 2 PUFF INH ×2 (07:07→20:01)
[2023-05-11] MEDS: DUONEB 3 ML INH ×4 (07:08→20:01)
[2023-05-11 07:30] VITALS: BP 103/43
[2023-05-11] MEDS: NEURONTIN 300 MG PO (08:19)
[2023-05-11] MEDS: HEPARIN 5000 UNITS SC ×2 (08:19→19:31)
[2023-05-11] MEDS: PROTONIX 40 MG PO (08:19)
--- NOTE | 2023-05-11 08:57 | W.PN.PUL.V3 ---
Today's Communication / Plan
-
Antibiotics
Wean FiO2
No change in Decadron
Continue inhalers and nebulizers
Assessment
-
77-year-old female with history of multiple myeloma, chronic kidney disease, hypertension, hyperlipidemia, GERD who and asthma presented with weakness and vomiting and had shortness of breath with hypoxemia and thus pulmonary was consulted 05/10/2023.
Left lower lobe pneumonia
Asthma with acute exacerbation
Leukocytosis-WBC 19.2
Mild cfsiow-owjzjbgyzn-xilnkjhclv 10.8
Thrombocytopenia-platelet 81
Nausea and vomiting
Nongap metabolic acidosis
Hypokalemia
Mild hyperglycemia-blood sugar 158
Recent mechanical fall
Right frontal scalp hematoma from recent fall
Conditions present prior to admission:
Multiple myeloma-in remission
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
Former smoker.
Asthma-followed by Dr. Jimenez-maintained on Advair 250/50 and albuterol
Seasonal allergies
History of breast cancer
History of bladder cancer
Obesity
Paraesophageal hernia
Chronic kidney disease.
Hypertension.
Hyperlipidemia.
GERD.
Cataract surgery. Left breast lumpectomy 2014. Paraesophageal hernia repair 2015. TURBT for bladder cancer. Left shoulder repair with biceps tendectomy 2021.
Plan
Respiratory decompensation felt to be from pneumonia and asthma exacerbation
Continue supplemental oxygen as needed-attempt to wean-note patient is not on home oxygen
We will need to assess discharge supplemental oxygen needs
Aspiration precautions
Mucolytic's
Nebulizers continues
Decadron 4 mg IV every 8 hours-Hope to reduce in the next 24 hours
Advair 115/21 continues
Follow radiographically
Check cultures
Sputum culture
Empiric antibiotics to cover community-acquired sources including atypicals-ceftriaxone and azithromycin initiated
Monitor hemoglobin and platelet count
Transfuse as needed
Continue to replace electrolytes
Monitor renal function
Monitor blood sugar
Insulin supplementation if needed
DVT prophylaxis-on heparin
GI prophylaxis-on pantoprazole
Nutrition as tolerated
Early mobilization/physical therapy
Last saw Dr. Jimenez 05/18/22 and has appointment with PFT on 05/24/2023 at 8 AM
Diagnostic data:
Chest x-ray 05/21/2021-NAD
Chest x-ray 05/09/2023-left lower lobe pneumonia
CT scan of the abdomen-04/11/2017: (Images reviewed of lung bases) lung bases were clear (my review SDG).
PET scan-03/01/18: No soft tissue focus of FDG uptake suspicious for malignancy.����
Pulmonary function studies 05/13/22: Spirometry demonstrated mild obstructive lung disease with small airways obstruction. The forced vital capacity was 2.44 L or 96% of predicted. The FEV1 was 1.60 L or 85% of predicted. The FEV1/FVC ratio was 66%
postbronchodilator. Small airways obstruction was present. The midlung flows were 48% of predicted and improved 19% postbronchodilator. The lung volumes revealed a low normal total lung capacity of 3.82 L or 80% predicted. The diffusing capacity was
mildly reduced at 14.2 or 73% of predicted. When adjusted for alveolar volume, diffusing capacity normalized to 88%
6 minute walk test-05/18/22: Her resting room air oxygen saturation was 97% and declined to 95% on the 6 minute walk test which covered 900 feet. Her maximum heart rate was 117 bpm. Her perceived dyspnea was minimal at 0.5 on a 10 point scale.
���
Subjective Data
-
Date of Service:
Date of Service: May 11, 2023
Chief Complaint: Pulmonary Follow Up and Dyspnea Follow Up
Subjective:
Feels about the same, has chest congestion, wheezing, shortness of breath with exertion, no chest pain or abdominal pain
Review of Systems
General: Other (Per HPI)
Objective Data
Data Reviewed
Vital Signs / I&O:
Vital Signs
Temp Pulse Resp BP Pulse Ox
98.0 F 83 18 103/43 93
05/11/23 07:30 05/11/23 07:30 05/11/23 07:30 05/11/23 07:30 05/11/23 07:30
Intake and Output
05/10/23 05/11/23 05/12/23
06:59 06:59 06:59
Intake Total 483 / 483
Balance 483 / 483
SaO2: 93
Nasal Cannula flow liters per minute: 2
Physical Exam
General: Respiratory Distress (n) and Comfortable
HEENT: Normocephalic, Anicteric and Moist Mucous Membranes
Cardiovascular: Regular Rhythm
Respiratory: Wheeze (Forced expiratory), Crackles (Few basilar), Rhonchi (Expiratory), Non-Labored Respirations, Accessory Resp Muscle Use (n) and Stridor (n)
GI: Soft, Non Distended and Non Tender
Neurology: Awake, Alert and No Motor Deficits
Skin: Warm, Good Color, Cyanosis (n), Jaundice (n) and Rash (n)
Labs/Micro/Reports
Lab Data
05/11/23 04:54
05/11/23 04:54
Microbiology
05/09/23 15:03 Blood/Venous Blood Culture - Preliminary
No Growth in 24 hours- Final report to follow
05/09/23 14:33 Blood/Venous Blood Culture - Preliminary
No Growth in 24 hours- Final report to follow
05/09/23 15:20 Urine Urine Culture - Final
05/10/23 09:19 Sputum Gram Stain - Preliminary
05/09/23 14:39 Nasal Swab Influenza Types A & B (DIXIE) - Final
Negative for Influenza A & B, NAAT
Negative results must be combined with clinical observations
and patient history.
Nucleic Acid Amplification test (NAAT)performed on the
[employer] platform.
--- NOTE | 2023-05-11 09:39 | W.PN.HOSP.TC ---
Addendum entered and electronically signed by Jt West MD 05/11/23 15:54:
CKD 3B
Original Note:
Today's Communication/Plan
-
Continue IV steroids
Continue nebulizer therapy/oxygen as needed
Add expectorant
Encourage incentive and Acapella
Increase activity physical therapy to see
Continue present course of antibiotics noting significant elevation in procalcitonin
Assessment / Plan
Assessment / Plan
7-year-old female past medical history of multiple myeloma, chronic kidney disease hypertension, hyperlipidemia, GERD, presenting for weakness and vomiting. 2 days ago she started feeling unwell and has been vomiting since and unable to keep water
down. She feels very weak. Denies abdominal pain or diarrhea. She did have a mechanical fall from tripping 1 week ago and landed face first and hit her head with some facial bruising. Denied any loss of consciousness at the time. She has been
having some headache over the past few days. She developed a productive cough 4 days ago but denies any shortness of breath or chest pain. She denies any fevers. Denies any sinus pressure or nasal congestion. Does feel cold but denies fevers or
chills. Denies eating any restaurant or outside food recently. Denies any recent antibiotic use.
She is a former smoker. Denies alcohol use.
# Sepsis (tachycardia, leukocytosis) secondary to left lower lobe pneumonia
-COVID, influenza negative
-Check sputum culture
- procalcitonin 4.45
-Ceftriaxone, azithromycin
-DuoNebs /IV steroids with presentation of bronchospasm and history of asthma
# Vomiting likely secondary to pneumonia/viral illness/improved
-Zofran as needed
-N.p.o.>> trial of diet today
# Non-anion gap metabolic acidosis secondary to vomiting
-Bicarb push
-IV fluids with bicarb drip to continue
-If no response in next 24 hours we will obtain Nephrology input
# Hypokalemia secondary to vomiting
-Replete potassium
# Thrombocytopenia secondary to sepsis
-Platelets of 101, continue to monitor
# Recent mechanical fall
-X-ray left knee no acute abnormality
# Right frontal scalp hematoma from recent fall
-CT head and facial bones shows no acute abnormality
# Asymptomatic bacteriuria
-Await blood cultures and urine cultures
-No need to change present course of antibiotics for her respiratory infection that should cover
History of multiple myeloma in remission
Asthma
-DuoNebs every 6 hours
Chronic kidney disease
-Creatinine stable at 1.4
-Chronic kidney disease stage IIIb
-Nongap acidosis resolved
Essential hypertension
-Continue prophylactic aspirin
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
-Continue gabapentin
Hyperlipidemia
-Continue statin
GERD
-Continue omeprazole
Full code
DVT prophylaxis�heparin
Regular diet
Anticipated Discharge: 24 - 48 hours
Subjective/Interval History
-
Date of Service: May 11, 2023
Looks better this morning sitting up in chair has some trouble bringing up clear sputum that she feels is still thick but from the last congestion this morning
Objective Data
-
Labs:
Laboratory Results
05/11/23
04:54
WBC 9.6
Hgb 9.4 L
Hct 28.9 L
Plt Count 83 L
Sodium 135
Potassium 4.0
Chloride 104
Carbon Dioxide 25
BUN 23 H
Creatinine 1.4 H
Glucose 155 H
Calcium 7.6 L
Vital Signs:
Vital Signs
Temp Pulse Resp BP Pulse Ox
98.0 F 83 18 103/43 93
05/11/23 07:30 05/11/23 07:30 05/11/23 07:30 05/11/23 07:30 05/11/23 08:57
I&O
05/10/23 05/11/23 05/12/23
06:59 06:59 06:59
Intake Total 483 / 483
Balance 483 / 483
Review of Systems
-
Constitutional: Reports No Symptoms
Respiratory: Reports Cough and Wheezing
Physical Exam
-
General: Well Developed
HEENT: Normocephalic and PERRLA (Periorbital ecchymosis and right brow ecchymosis from fall)
Respiratory: Clear to Auscultation
Cardiac: Regular Rhythm
GI: Soft, Nontender and Nondistended
Neuro: Awake, Alert and Oriented
Psych: Calm
Data Reviewed
-
Total Time Spent with Patient (in minutes): 45
Labs: Labs Reviewed by me (Procalcitonin of 4.45/white count remained stable at 9.6/hemoglobin 9.4/creatinine stable for her level of CKD at 1.4)
--- NOTE | 2023-05-11 14:42 | PN.CDI ---
CDI
- -
CDI:
Physician Documentation Request
Admit Date: 05/09/23 16:41
Dear Doctor Brett,
Please review the following and provide your response in the progress notes.
Clinical Indicators:
Pt admitted with Sepsis 2/2 PNA
Documented throughout the record is HX of CKD
Progress note / , ' Chronic kidney disease Creatinine stable at 1.4...'
Laboratory Tests
05/09/23 05/10/23 05/11/23
11:52 04:55 04:54
Creatinine 1.4 H 1.5 H 1.4 H
eGFR 38.27 35.23 38.27
Please clarify the Suspected stage of CKD :
Stages of Chronic Kidney Disease*
Level Description GFR
G1 Normal or High >90
G2 Mildly decreased 60-89
G3a Mildly to moderately decreased 45-59
G3b Moderately to severely decreased 30-44
G4 Severely decreased 15-29
G5 Kidney failure <15
Use of terms such as suspected, likely, concern for, or probable (associated with a specific diagnosis that is being evaluated, monitored, or treated as if it exists) are acceptable and can be coded in the inpatient setting, when documented at the
time of discharge.
Thank you,
Annamaria Forrest RN
CDI Specialist
[place] [facility]
Please use your independent medical judgment in providing your response.
*Source: Kidney Disease: Improving Global Outcomes (KDIGO) 2012
[2023-05-11 15:34] VITALS: BP 115/59
[2023-05-11] MEDS: STERILE WATER FOR INJECTION 10 ML IV (15:43)
[2023-05-11] MEDS: ZITHROMAX INFUSION 250 IV (15:43)
[2023-05-11] MEDS: ROCEPHIN 1000 MG IV (15:43)
[2023-05-11 15:45] VITALS: PULSE 86; O2SAT 96
--- NOTE | 2023-05-11 16:49 | CM ---
Currently on IV antibiotics.
She also in on new oxygen.
Offered VN she declined.
Family will drive her home.
PLAN Home no needs
Watch for new oxygen
[2023-05-11] MEDS: VITAMIN D3 (cholecalciferol) 125 MCG PO (17:18)
[2023-05-11] MEDS: NEURONTIN 600 MG PO (19:33)
[2023-05-11] MEDS: LIPITOR 10 MG PO (19:33)
[2023-05-11] MEDS: ASPIR LOW (ENTERIC COATED) PO (22:22)
[2023-05-11] MEDS: XALATAN OPHTHALMIC SOLUTION 1 DROP BOTH EYES (22:22)
[2023-05-11 23:29] VITALS: BP 110/52
[2023-05-12] MEDS: DECADRON 4 MG IV ×2 (03:52→22:07)
[2023-05-12] MEDS: ADVAIR HFA 115/21 MCG INHALER 2 PUFF INH ×2 (07:05→19:22)
[2023-05-12] MEDS: DUONEB 3 ML INH ×4 (07:06→19:23)
[2023-05-12] MEDS: PROTONIX 40 MG PO (07:32)
[2023-05-12] MEDS: HEPARIN 5000 UNITS SC (07:32)
[2023-05-12] MEDS: NEURONTIN 300 MG PO (07:32)
[2023-05-12 07:57] LABS: Hematocrit 30.1 % (37.0-47.0); Hemoglobin 9.9 g/dL (12.0-16.0); Mean Corp Hgb Conc. 32.9 g/dL (33.0-37.0); Mean Corpuscular Hgb 30.4 pg (27.0-31.0); Mean Corpuscular Volume 92.3 fL (81.0-99.0); Mean Platelet Volume 12.6 fL (7.4-10.4); Platelet Count 115 10^3/uL (130-400); Red Blood Cell Count 3.26 10^6/uL (4.20-5.40); Red Cell Dist. Width 14.4 % (11.5-14.5); White Blood Cell Count 7.3 10^3/uL (4.8-10.8)
[2023-05-12 08:18] VITALS: BP 134/60
[2023-05-12 08:21] LABS: Blood Urea Nitrogen 23 mg/dl (7-17); Calcium 8.8 mg/dl (8.4-10.2); Carbon Dioxide 24 mmol/L (22-30); Chloride 105 mmol/L (98-107); Estimated Creatinine Clearance 35 ml/min; Glucose 161 mg/dl (70-99); Potassium 3.8 mmol/L (3.5-5.1); Sodium 138 mmol/L (135-145); eGFR 41.83
--- NOTE | 2023-05-12 09:17 | W.PN.HOSP.TC ---
Today's Communication/Plan
-
Taper IV steroids
Continue present course of antibiotic and transition to oral at discharge hopefully tomorrow
Continue physical therapy
Assessment / Plan
Assessment / Plan
7-year-old female past medical history of multiple myeloma, chronic kidney disease hypertension, hyperlipidemia, GERD, presenting for weakness and vomiting. 2 days ago she started feeling unwell and has been vomiting since and unable to keep water
down. She feels very weak. Denies abdominal pain or diarrhea. She did have a mechanical fall from tripping 1 week ago and landed face first and hit her head with some facial bruising. Denied any loss of consciousness at the time. She has been
having some headache over the past few days. She developed a productive cough 4 days ago but denies any shortness of breath or chest pain. She denies any fevers. Denies any sinus pressure or nasal congestion. Does feel cold but denies fevers or
chills. Denies eating any restaurant or outside food recently. Denies any recent antibiotic use.
She is a former smoker. Denies alcohol use.
# Sepsis (tachycardia, leukocytosis) secondary to left lower lobe pneumonia
-COVID, influenza negative
-Check sputum culture
- procalcitonin 4.45
-Ceftriaxone, azithromycin
-DuoNebs /IV steroids with presentation of bronchospasm and history of asthma
-Taper IV steroids today and then eventual transition to prednisone taper tomorrow
# Vomiting likely secondary to pneumonia/viral illness/improved
-Zofran as needed
-N.p.o.>> trial of diet today
# Non-anion gap metabolic acidosis secondary to vomiting/resolved
-Bicarb push
-IV fluids with bicarb drip to continue
-If no response in next 24 hours we will obtain Nephrology input
# Hypokalemia secondary to vomiting
-Replete potassium
# Thrombocytopenia secondary to sepsis
-Platelets of 101, continue to monitor
# Recent mechanical fall
-X-ray left knee no acute abnormality
# Right frontal scalp hematoma from recent fall
-CT head and facial bones shows no acute abnormality
# Asymptomatic bacteriuria
-Await blood cultures and urine cultures
-No need to change present course of antibiotics for her respiratory infection that should cover
History of multiple myeloma in remission
Asthma
-DuoNebs every 6 hours
Chronic kidney disease
-Creatinine stable at 1.4
-Chronic kidney disease stage IIIb
-Nongap acidosis resolved
Essential hypertension
-Continue prophylactic aspirin
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
-Continue gabapentin
Hyperlipidemia
-Continue statin
GERD
-Continue omeprazole
Full code
DVT prophylaxis�heparin
Regular diet
Anticipated Discharge: Within 24 hours
Subjective/Interval History
-
Date of Service: May 12, 2023
Improved/did better in PT with some balance issues that remain however did not desaturate to any degree on room air and now off oxygen. Less congestion.
Objective Data
-
Labs:
Laboratory Results
05/12/23
06:38
WBC 7.3
Hgb 9.9 L
Hct 30.1 L
Plt Count 115 L D
Sodium 138
Potassium 3.8
Chloride 105
Carbon Dioxide 24
BUN 23 H
Creatinine 1.3 H
Glucose 161 H
Calcium 8.8
Vital Signs:
Vital Signs
Temp Pulse Resp BP Pulse Ox
98.2 F 71 18 134/60 99
05/12/23 08:18 05/12/23 08:18 05/12/23 08:18 05/12/23 08:18 05/12/23 08:18
I&O
05/11/23 05/12/23 05/13/23
06:59 06:59 06:59
Intake Total 483 / 483 730 / 730
Balance 483 / 483 730 / 730
Review of Systems
-
History Source: Patient
Constitutional: Reports Fatigue; Denies Fever
Physical Exam
-
General: Well Developed
HEENT: Other (Right periorbital ecchymosis and also above brow)
Respiratory: Wheezes (Significantly less wheezing) and Rhonchi
Cardiac: Regular Rhythm
GI: Soft
Skin: Warm
Neuro: Awake
Psych: Calm
Data Reviewed
-
Total Time Spent with Patient (in minutes): 56
Labs: Labs Reviewed by me (White count normal at 7.3 and hemoglobin 9.9 stable platelets now trending up to 115)
--- NOTE | 2023-05-12 09:54 | W.PN.PUL.V3 ---
Today's Communication / Plan
-
Wean oxygen
Increase activity
Decrease Decadron
Continue nebulizers
Continue mucolytic's
Outpatient pulmonary follow-up
Assessment
-
77-year-old female with history of multiple myeloma, chronic kidney disease, hypertension, hyperlipidemia, GERD who and asthma presented with weakness and vomiting and had shortness of breath with hypoxemia and thus pulmonary was consulted 05/10/2023.
Left lower lobe pneumonia
Asthma with acute exacerbation
Leukocytosis-WBC 19.2
Mild uucebq-thwhvjmvad-xtroinvxjj 10.8
Thrombocytopenia-platelet 81
Nausea and vomiting
Nongap metabolic acidosis
Hypokalemia
Mild hyperglycemia-blood sugar 158
Recent mechanical fall
Right frontal scalp hematoma from recent fall
Conditions present prior to admission:
Multiple myeloma-in remission
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
Former smoker.
Asthma-followed by Dr. Jimenez-maintained on Advair 250/50 and albuterol
Seasonal allergies
History of breast cancer
History of bladder cancer
Obesity
Paraesophageal hernia
Chronic kidney disease.
Hypertension.
Hyperlipidemia.
GERD.
Cataract surgery. Left breast lumpectomy 2014. Paraesophageal hernia repair 2016. TURBT for bladder cancer. Left shoulder repair with biceps tendectomy 2021.
Plan
Respiratory decompensation felt to be from pneumonia and asthma exacerbation
Respiratory status improving
Wean supplemental oxygen
We will need to assess ambulatory discharge supplemental oxygen needs
Aspiration precautions
Mucolytic's added
Nebulizers continues
Decadron 4 mg IV every 8 hours-will decrease to every 12 hours and likely convert to prednisone 40-50 mg daily with slow taper tomorrow
Advair 115/21 continues
Follow radiographically
Cultures reviewed
Sputum culture-pending
Blood cultures negative
Empiric antibiotics to cover community-acquired sources including atypicals-ceftriaxone and azithromycin initiated
Follow hemoglobin and platelet count
Transfuse as needed
Continue to replace electrolytes
Monitor renal function
Follow blood sugar
Insulin supplementation if needed
DVT prophylaxis-on heparin
GI prophylaxis-on pantoprazole
Nutrition as tolerated
Early mobilization/physical therapy
Reviewed with nursing and hospitalist
Last saw Dr. Jimenez 05/18/22 and has appointment with PFT on 05/24/2023 at 8 AM
Diagnostic data:
Chest x-ray 05/21/2021-NAD
Chest x-ray 05/09/2023-left lower lobe pneumonia
CT scan of the abdomen-04/11/2017: (Images reviewed of lung bases) lung bases were clear (my review SDG).
PET scan-03/01/18: No soft tissue focus of FDG uptake suspicious for malignancy.����
Pulmonary function studies 05/13/22: Spirometry demonstrated mild obstructive lung disease with small airways obstruction. The forced vital capacity was 2.44 L or 96% of predicted. The FEV1 was 1.60 L or 85% of predicted. The FEV1/FVC ratio was 66%
postbronchodilator. Small airways obstruction was present. The midlung flows were 48% of predicted and improved 19% postbronchodilator. The lung volumes revealed a low normal total lung capacity of 3.82 L or 80% predicted. The diffusing capacity was
mildly reduced at 14.2 or 73% of predicted. When adjusted for alveolar volume, diffusing capacity normalized to 88%
6 minute walk test-05/18/22: Her resting room air oxygen saturation was 97% and declined to 95% on the 6 minute walk test which covered 900 feet. Her maximum heart rate was 117 bpm. Her perceived dyspnea was minimal at 0.5 on a 10 point scale.
���
Subjective Data
-
Date of Service:
Date of Service: May 12, 2023
Chief Complaint: Pulmonary Follow Up and Dyspnea Follow Up
Subjective:
Feels a little better, still with some chest congestion, no chest pain or abdominal pain
Review of Systems
General: Other (Per HPI)
Objective Data
Data Reviewed
Vital Signs / I&O:
Vital Signs
Temp Pulse Resp BP Pulse Ox
98.2 F 71 18 134/60 99
05/12/23 08:18 05/12/23 08:18 05/12/23 08:18 05/12/23 08:18 05/12/23 08:18
Intake and Output
05/11/23 05/12/23 05/13/23
06:59 06:59 06:59
Intake Total 483 / 483 730 / 730
Balance 483 / 483 730 / 730
SaO2: 99
Nasal Cannula flow liters per minute: 2
Physical Exam
General: Respiratory Distress (n) and Comfortable
HEENT: Normocephalic, Anicteric and Moist Mucous Membranes
Cardiovascular: Regular Rhythm
Respiratory: Wheeze (Forced expiratory), Crackles (Few basilar), Rhonchi (Expiratory), Non-Labored Respirations, Accessory Resp Muscle Use (n) and Stridor (n)
GI: Soft, Non Distended and Non Tender
Neurology: Awake, Alert and No Motor Deficits
Skin: Warm, Good Color, Cyanosis (n), Jaundice (n) and Rash (n)
Labs/Micro/Reports
Lab Data
05/12/23 06:38
05/12/23 06:38
Microbiology
05/09/23 15:03 Blood/Venous Blood Culture - Preliminary
No Growth in 48 hours- Final report to follow
05/09/23 14:33 Blood/Venous Blood Culture - Preliminary
No Growth in 48 hours- Final report to follow
05/10/23 09:19 Sputum Respiratory Culture - Preliminary
05/10/23 09:19 Sputum Gram Stain - Preliminary
05/09/23 15:20 Urine Urine Culture - Final
05/09/23 14:39 Nasal Swab Influenza Types A & B (DIXIE) - Final
Negative for Influenza A & B, NAAT
Negative results must be combined with clinical observations
and patient history.
Nucleic Acid Amplification test (NAAT)performed on the
[employer] platform.
[2023-05-12] MEDS: MUCINEX 1200 MG PO ×2 (10:33→22:05)
--- NOTE | 2023-05-12 11:08 | CM ---
Currently on IV antibiotics.
She weaned off oxygen Pox 95%.
Tapering steroids.
PT recommended VN .Offered VN she declined.
Family will drive her home.
PLAN Home no needs
--- NOTE | 2023-05-12 13:43 | PTCARENOTE ---
Pt ambulating in hallway with son. Spot check oxygen level, pt just began walk, about 150ft pox 87% on RA HR 121. Pt mildly short of breath but comfortable wanting to walk more. Pt assisted back to room, resting pulse ox 91-92%. MD aware, call yost
within reach, plan of care ongoing.
[2023-05-12 14:39] VITALS: BP 144/72; PULSE 99; O2SAT 92
[2023-05-12 15:00] VITALS: BP 133/65
[2023-05-12] MEDS: ROCEPHIN 1000 MG IV (17:05)
[2023-05-12] MEDS: VITAMIN D3 (cholecalciferol) 125 MCG PO (17:05)
[2023-05-12] MEDS: ZITHROMAX INFUSION 250 IV (17:05)
[2023-05-12] MEDS: STERILE WATER FOR INJECTION 10 ML IV (17:06)
[2023-05-12] MEDS: TYLENOL 650 MG PO (17:09)
[2023-05-12] MEDS: HEPARIN SC (22:05)
[2023-05-12] MEDS: ASPIR LOW (ENTERIC COATED) 81 MG PO (22:06)
[2023-05-12] MEDS: NEURONTIN 600 MG PO (22:06)
[2023-05-12] MEDS: LIPITOR 10 MG PO (22:06)
[2023-05-12] MEDS: XALATAN OPHTHALMIC SOLUTION 1 DROP BOTH EYES (22:07)
[2023-05-12 23:38] VITALS: BP 132/70
[2023-05-13] MEDS: ADVAIR HFA 115/21 MCG INHALER 2 PUFF INH (07:26)
[2023-05-13] MEDS: DUONEB 3 ML INH ×2 (07:26→11:28)
[2023-05-13 07:30] VITALS: BP 124/67
[2023-05-13] MEDS: DECADRON 4 MG IV (08:20)
[2023-05-13] MEDS: NEURONTIN 300 MG PO (08:21)
[2023-05-13] MEDS: HEPARIN 5000 UNITS SC (08:21)
[2023-05-13] MEDS: MUCINEX 1200 MG PO (08:21)
[2023-05-13] MEDS: PROTONIX 40 MG PO (08:22)
--- NOTE | 2023-05-13 09:47 | W.PN.PUL.V3 ---
Today's Communication / Plan
-
Wean oxygen
Assess discharge supplemental oxygen needs
Change Decadron to prednisone with slow taper
Continue mucolytic's, mucus clearing devices and inhalers/nebulizers
Assessment
-
77-year-old female with history of multiple myeloma, chronic kidney disease, hypertension, hyperlipidemia, GERD who and asthma presented with weakness and vomiting and had shortness of breath with hypoxemia and thus pulmonary was consulted 05/10/2023.
Left lower lobe pneumonia
Asthma with acute exacerbation
Leukocytosis-WBC 19.2
Mild ubkifm-zvdluozgvx-tuwjizaitv 10.8
Thrombocytopenia-platelet 81
Nausea and vomiting
Nongap metabolic acidosis
Hypokalemia
Mild hyperglycemia-blood sugar 158
Recent mechanical fall
Right frontal scalp hematoma from recent fall
Conditions present prior to admission:
Multiple myeloma-in remission
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
Former smoker.
Asthma-followed by Dr. Jimenez-maintained on Advair 250/50 and albuterol
Seasonal allergies
History of breast cancer
History of bladder cancer
Obesity
Paraesophageal hernia
Chronic kidney disease.
Hypertension.
Hyperlipidemia.
GERD.
Cataract surgery. Left breast lumpectomy 2014. Paraesophageal hernia repair 2015. TURBT for bladder cancer. Left shoulder repair with biceps tendectomy 2021.
Plan
Respiratory decompensation felt to be from pneumonia and asthma exacerbation
Respiratory status continues to slowly improve
Continue attempts at weaning supplemental oxygen
We will need to assess ambulatory discharge supplemental oxygen needs-yesterday desaturated to 88% on room air-might not need home oxygen
Aspiration precautions
Mucolytic's continue
Nebulizers continues
Decadron 4 mg IV every 12 hours-convert to prednisone 40 mg with slow taper
Advair 115/21 continues
Follow radiographically
Cultures reviewed
Sputum culture-usual respiratory nicolasa
Blood cultures negative
Empiric antibiotics to cover community-acquired sources including atypicals-ceftriaxone and azithromycin initiated
Follow hemoglobin and platelet count
Transfuse as needed
Continue to replace electrolytes
Monitor renal function
Monitor blood sugar
Insulin supplementation if needed
DVT prophylaxis-on heparin
GI prophylaxis-on pantoprazole
Nutrition as tolerated
Early mobilization/physical therapy
Reviewed with nursing and hospitalist
Last saw Dr. Jimenez 05/18/22 and has appointment with PFT on 05/24/2023 at 8 AM
Diagnostic data:
Chest x-ray 05/21/2021-NAD
Chest x-ray 05/09/2023-left lower lobe pneumonia
CT scan of the abdomen-04/11/2017: (Images reviewed of lung bases) lung bases were clear (my review SDG).
PET scan-03/01/18: No soft tissue focus of FDG uptake suspicious for malignancy.����
Pulmonary function studies 05/13/22: Spirometry demonstrated mild obstructive lung disease with small airways obstruction. The forced vital capacity was 2.44 L or 96% of predicted. The FEV1 was 1.60 L or 85% of predicted. The FEV1/FVC ratio was 66%
postbronchodilator. Small airways obstruction was present. The midlung flows were 48% of predicted and improved 19% postbronchodilator. The lung volumes revealed a low normal total lung capacity of 3.82 L or 80% predicted. The diffusing capacity was
mildly reduced at 14.2 or 73% of predicted. When adjusted for alveolar volume, diffusing capacity normalized to 88%
6 minute walk test-05/18/22: Her resting room air oxygen saturation was 97% and declined to 95% on the 6 minute walk test which covered 900 feet. Her maximum heart rate was 117 bpm. Her perceived dyspnea was minimal at 0.5 on a 10 point scale.
���
Subjective Data
-
Date of Service:
Date of Service: May 13, 2023
Chief Complaint: Pulmonary Follow Up and Dyspnea Follow Up
Subjective:
Slightly improved, still has some dyspnea on exertion, less congested, less cough, no chest pain or abdominal pain
Review of Systems
General: Other (Per HPI)
Objective Data
Data Reviewed
Vital Signs / I&O:
Vital Signs
Temp Pulse Resp BP Pulse Ox
98.2 F 84 16 132/70 95
05/12/23 23:38 05/13/23 07:31 05/13/23 07:31 05/12/23 23:38 05/13/23 07:31
Intake and Output
05/12/23 05/13/23 05/14/23
06:59 06:59 06:59
Intake Total 730 / 730 1680 / 1680
Balance 730 / 730 1680 / 1680
SaO2: 95
Nasal Cannula flow liters per minute: 96
Physical Exam
General: Respiratory Distress (n) and Comfortable
HEENT: Normocephalic, Anicteric and Moist Mucous Membranes
Cardiovascular: Regular Rhythm
Respiratory: Wheeze (Forced expiratory), Crackles (Few basilar), Rhonchi (Expiratory), Non-Labored Respirations, Accessory Resp Muscle Use (n) and Stridor (n)
GI: Soft, Non Distended and Non Tender
Neurology: Awake, Alert and No Motor Deficits
Skin: Warm, Good Color, Cyanosis (n), Jaundice (n) and Rash (n)
Labs/Micro/Reports
Lab Data
05/12/23 06:38
05/12/23 06:38
Microbiology
05/09/23 15:03 Blood/Venous Blood Culture - Preliminary
No Growth in 72 hours- Final report to follow
05/09/23 14:33 Blood/Venous Blood Culture - Preliminary
No Growth in 72 hours- Final report to follow
05/10/23 09:19 Sputum Respiratory Culture - Final
Usual Respiratory Nicolasa
05/10/23 09:19 Sputum Gram Stain - Final
05/09/23 15:20 Urine Urine Culture - Final
[2023-05-13 10:05] VITALS: O2SAT 90; O2SAT 93
--- NOTE | 2023-05-13 11:09 | W.DS.TRANS ---
DC Summary - [employer]
-
Discharge Instructions:
Discharge Diagnosis/Procedures Community-acquired pneumonia
Asthmatic bronchitis
Falls with facial trauma
Diet As tolerated
Activity No restrictions
Driving Restrictions As prior to admission
Instructions:
Stand-Alone Forms:
Changes to Home Medications: Yes
Discharge Medications:
DC Medications w/original date entered in [facility]
gabapentin 300 mg capsule 300 mg PO DAILY Neurological Condition 05/21/21
gabapentin 300 mg capsule 600 mg PO HS Neurological Condition 05/21/21
omeprazole 20 mg capsule,delayed release 20 mg PO DAILY Gastrointestinal issue 05/21/21
simvastatin 20 mg tablet 20 mg PO HS High cholesterol 05/21/21
acetaminophen 500 mg tablet (Acetaminophen Extra Strength) 1,000 mg PO DAILYPRN PRN mild pain 07/10/21
aspirin 81 mg tablet,delayed release 81 mg PO HS Blood Clot Prevention/Tx 07/10/21
Oil Of Oregano 2 cap PO QPM Supplement 05/09/23
albuterol sulfate 90 mcg/actuation aerosol inhaler (Ventolin HFA) 2 puff inhalation R Q6HPRN PRN sob 05/09/23
apple cider vinegar 2 tab PO HS Supplement 05/09/23
cholecalciferol (vitamin D3) 125 mcg (5,000 unit) tablet 125 mcg PO QPM Supplement 05/09/23
cyanocobalamin (vitamin B-12) 1 tab PO QPM Supplement 05/09/23
fluticasone 250 mcg-salmeterol 50 mcg/dose blistr powdr for inhalation (Wixela Inhub) 1 inh inhalation R BID Lung/Breathing Issues 05/09/23
latanoprost 0.005 % eye drops 1 drp BOTH EYES HS Eye Condition 05/09/23
turmeric 400 mg capsule 400 mg PO QPM Supplement 05/09/23
cefdinir 300 mg capsule 300 mg PO BID Infection #10 caps 05/13/23
guaifenesin 600 mg tablet, extended release 12 hr 1,200 mg (2 x 600 mg) PO Q12 Cough #14 tabs 05/13/23
prednisone 10 mg tablet See Rx Instructions .Route .COMPLEX Anti-inflammatory #30 tabs 05/13/23
Home Medication Changes
cefdinir 300 mg capsule 300 mg PO BID Infection #10 caps 05/13/23
guaifenesin 600 mg tablet, extended release 12 hr 1,200 mg (2 x 600 mg) PO Q12 Cough #14 tabs 05/13/23
prednisone 10 mg tablet See Rx Instructions .Route .COMPLEX Anti-inflammatory #30 tabs 05/13/23
Pending Results: No
Total time spent discharging patient (in min): 38
[2023-05-13 11:30] VITALS: BP 130/70
--- NOTE | 2023-05-13 12:19 | W.DCSUMMARY ---
Discharge Summary
Discharge Data
Date of Admission: 05/09/23
Date of Discharge: 05/13/23
-
Pending Results: No
Hospital Course
77-year-old female with a known history of multiple myeloma chronic kidney disease hypertension hyperlipidemia and known history of asthma presented with weakness and vomiting and had also shortness of breath and hypoxia on presentation initial
workup after being seen evaluated in the emergency room noted a suspected left lower lobe pneumonic infiltrate and she also presented with significant bronchospasm possibly in keeping with asthma with acute exacerbation possibly precipitated by a
community-acquired pneumonia she was admitted she exhibited leukocytosis of 19,000 but otherwise did not meet criteria for sepsis she had had a fall and had no over the areas of ecchymosis around her periorbital area of her right eye and her right
brow there is no signs of any fracture on x-ray imaging of the facial bones and CT scan was unremarkable. She presents with mild anemia with normocytic indices hemoglobin 10.8 with underlying thrombocytopenia which may be on a chronic basis.
Nongap metabolic acidosis was noted initially and resolved with IV fluids she was placed on wide spectrum antibiotic coverage with ceftriaxone and Zithromax. She was seen by the pulmonary service. A procalcitonin was significant elevated at 4.422
and a presumptive bacterial source. It became necessary to also put her on a steroid taper as the patient had significant bronchospasm prompting the pulmonary evaluation who concurred. She eventually graduated off oxygen therapy and has been
ambulatory with borderline desaturation values but would not qualify for home oxygen. Evaluated by physical therapy and found stable for discharge with no ongoing ambulatory issues or gait issues. Patient's leukocytosis also resolved she was
discontinued off her IV Decadron and and placed on a steroid taper starting at 40 mg on the date of her discharge to be decreased to every third day by 10 mg. She will continue outpatient course of albuterol HFA and given a course of cefdinir to be
taken for the next 5 days 300 mg twice a day along with guaifenesin 1200 mg every 12 hours. Also advised to continue mucus clearing devices with spirometry and Acapella and nebs/discharge diagnosis community-acquired left lower lobe pneumonia/COPD
exacerbation/nongap metabolic acidosis resolved/asymptomatic bacteriuria
She has been advised to follow-up with the pulmonary service Dr. Jimenez
Discharge Plan
-
Patient Disposition: Home (Routine Discharge)
Discharge Diagnosis/Procedures: Community-acquired pneumonia
Asthmatic bronchitis
Falls with facial trauma
Diet: As tolerated
Activity: No restrictions
Driving Restrictions: As prior to admission
Referrals:
Miquel Jimenez MD [Active] - (As scheduled with PFTs)
Ar Montague MD [Family Provider] -
Prescriptions:
New
guaifenesin 600 mg Tablet Extended Release 12hr
1,200 mg PO Q12 Qty: 14 0RF
cefdinir 300 mg capsule
300 mg PO BID Qty: 10 0RF
prednisone 10 mg Tablet
See Rx Instructions .ROUTE .COMPLEX Qty: 30 0RF
Rx Instructions:
Take By Mouth:
40 mg daily x3 days, 30 mg daily x3 days,
20 mg daily x3 days, 10 mg daily x3 days.
Continued
gabapentin 300 MG capsule
600 mg PO HS
gabapentin 300 MG capsule
300 mg PO DAILY
omeprazole 20 MG capsule,delayed release(DR/EC)
20 mg PO DAILY
simvastatin 20 MG tablet
20 mg PO HS
aspirin 81 MG tablet,delayed release (DR/EC)
81 mg PO HS
acetaminophen [Acetaminophen Extra Strength] 500 MG tablet
1,000 mg PO DAILYPRN PRN (Reason: mild pain)
latanoprost 0.005 % Drops
1 drp BOTH EYES HS
fluticasone propion-salmeterol [Wixela Inhub] 250-50 mcg/dose Blister With Device
1 inh INHALATION R BID
Patient Comments:
05/09/2023, tried taking this med. today but started coughing per pt.; they believe they inhaled a little bit of this med.
albuterol sulfate [Ventolin HFA] 90 mcg/actuation Hfa Aerosol Inhaler
2 puff INHALATION R Q6HPRN PRN (Reason: sob)
cholecalciferol (vitamin D3) 125 mcg (5,000 unit) Tablet
125 mcg PO QPM
turmeric 400 mg Capsule
400 mg PO QPM
Oil Of Oregano
2 cap PO QPM
apple cider vinegar
2 tab PO HS
cyanocobalamin (vitamin B-12)
1 tab PO QPM
Discharge Orders:
Discharge Patient (As Directed); Ordered 05/13/23
Ordered By: Jt West
Discharge Date and Time
Print Language: BRUNEIAN
--- NOTE | 2023-05-13 13:29 | CM ---
Md entered order for discharge .
Spoke with pt she said she was ready for dc.
Oxygen weaned off.
Offered V she declined need.
Dequan will drive her home.
PLAN Home no needs
== END 2023-05-13 14:03 | disposition home or self-care (01) | DRG 871 ==
LOC: 4 EAST ACU 16:41
PROVIDERS: Emergency Medicine; Nurse Practitioner; ADMITTING PHYSICIAN Hospitalist; ATTENDING PHYSICIAN Internal Medicine; CONSULT PHYSICIAN Internal Medicine Critical Care Medicine; EMERGENCY PHYSICIAN Emergency Medicine; FAMILY PHYSICIAN Family Medicine
DX: A41.89 Other specified sepsis (principal); J18.9 Pneumonia, unspecified organism; C90.01 Multiple myeloma in remission; E87.20 Acidosis, unspecified; J45.901 Unspecified asthma with (acute) exacerbation; E78.00 Pure hypercholesterolemia, unspecified; I12.9 Hypertensive chronic kidney disease with stage 1 through stage 4 chronic kidney disease, or unspecified chronic kidney disease; E86.0 Dehydration; N18.32 Chronic kidney disease, stage 3b; I45.10 Unspecified right bundle-branch block; K44.9 Diaphragmatic hernia without obstruction or gangrene; D64.9 Anemia, unspecified; R73.9 Hyperglycemia, unspecified; E87.6 Hypokalemia; G62.9 Polyneuropathy, unspecified; K21.9 Gastro-esophageal reflux disease without esophagitis; D69.59 Other secondary thrombocytopenia; S00.83XA Contusion of other part of head, initial encounter; W01.10XA Fall on same level from slipping, tripping and stumbling with subsequent striking against unspecified object, initial encounter; Y93.01 Activity, walking, marching and hiking; Y92.9 Unspecified place or not applicable; Z87.891 Personal history of nicotine dependence; Z88.0 Allergy status to penicillin; Z88.7 Allergy status to serum and vaccine; Z91.041 Radiographic dye allergy status; Z79.51 Long term (current) use of inhaled steroids; Z82.5 Family history of asthma and other chronic lower respiratory diseases; Z80.0 Family history of malignant neoplasm of digestive organs; Z83.3 Family history of diabetes mellitus; Z82.0 Family history of epilepsy and other diseases of the nervous system; Z85.3 Personal history of malignant neoplasm of breast; Z85.51 Personal history of malignant neoplasm of bladder; Z11.52 Encounter for screening for COVID-19
CPT/HCPCS: 70450; 70486; 71046; 73564; 80048; 80053; 81003; 81015; 83605; 84145; 85025; 85027; 87040; 87070; 87086; 87205; 87502; 87811; 93005; 94640; 94761; 96361; 96365; 96375; 97116; 97162; 99285

== ENCOUNTER → 2024-01-02 19:23 | Outpatient (REF) | payer MEDICARE, OTHER, SELFPAY | LOC: WDC 19:23 | PROVIDERS: ATTENDING PHYSICIAN Family Medicine | DX: Z12.31 Encounter for screening mammogram for malignant neoplasm of breast (principal) | CPT/HCPCS: 77063; 77067 ==

== ENCOUNTER → 2024-03-14 10:47 | Outpatient (REF) | payer MEDICARE, OTHER, SELFPAY | LOC: WDC 10:47 | PROVIDERS: ATTENDING PHYSICIAN Family Medicine | DX: R92.30 Dense breasts, unspecified (principal) | CPT/HCPCS: 76641 ==

== ENCOUNTER 2024-07-27 23:17 | Inpatient (IN) | payer MEDICARE, OTHER, SELFPAY ==
[2024-07-27 19:16] VITALS: BP 153/79
[2024-07-27 19:53] LABS: ALT (SGPT) 17 U/L (0-35); AST (SGOT) 18 U/L (14-36); Albumin 4.8 g/dl (3.5-5.0); Alkaline Phosphatase 53 U/L (38-126); Blood Urea Nitrogen 17 mg/dl (7-17); Calcium 9.7 mg/dl (8.4-10.2); Carbon Dioxide 21 mmol/L (22-30); Chloride 108 mmol/L (98-107); Glucose 156 mg/dl (70-99); Potassium 4.3 mmol/L (3.5-5.1); Sodium 139 mmol/L (135-145); Total Bilirubin 0.9 mg/dl (0.2-1.3); Total Protein 7.4 g/dl (6.3-8.2)
[2024-07-27 20:05] LABS: Troponin I < 0.012 ng/ml
[2024-07-27 20:26] LABS: % Basophils 0.2 % (0-2); % Eosinophils 0.3 % (0-6); % Immature Granulocytes 2.6 % (0-0.5); % Lymphocytes 4.2 % (20.5-51.1); % Monocytes 19.2 % (1.7-9.3); % Neutrophils 73.5 % (42.2-75.2); Absolute Eosinophils 0.1 10^3/uL (0-0.7); Absolute Immature Granulocytes 0.4 10^3/uL (0-0.05); Absolute Lymphocytes 0.7 10^3/uL (1.2-3.4); Absolute Neutrophils 11.7 10^3/uL (1.4-6.5); Hematocrit 38.1 % (37.0-47.0); Hemoglobin 12.8 g/dL (12.0-16.0); Mean Corp Hgb Conc. 33.6 g/dL (33.0-37.0); Mean Corpuscular Hgb 30.8 pg (27.0-31.0); Mean Corpuscular Volume 91.6 fL (81.0-99.0); Mean Platelet Volume 12.3 fL (7.4-10.4); Nucleated Red Blood Cells % 0 %; Platelet Count 115 10^3/uL (130-400); Red Blood Cell Count 4.16 10^6/uL (4.20-5.40); Red Cell Dist. Width 13.8 % (11.5-14.5); White Blood Cell Count 15.9 10^3/uL (4.8-10.8)
[2024-07-27 21:04] VITALS: BP 130/62
[2024-07-27 21:49] LABS: Lactic Acid 0.9 mmol/L (0.7-2.0)
[2024-07-27] MEDS: TYLENOL 1000 MG PO (21:49)
[2024-07-27] MEDS: NSS 1000 IV (21:50)
[2024-07-27] MEDS: ZITHROMAX INFUSION 250 IV (21:50)
[2024-07-27] MEDS: ROCEPHIN 2000 MG IV (21:50)
[2024-07-27 22:00] VITALS: BP 123/63
--- NOTE | 2024-07-27 22:15 | ED.GENMED ---
History of Present Illness
General
Chief Complaint: Chest Pain
Time Seen by Provider: 07/27/24 20:36
History of Present Illness
History of Present Illness:
Note:
CHIEF COMPLAINT(S)
Possible pneumonia.
HISTORY OF PRESENT ILLNESS
The patient is an 79-year-old female who presented with concerns of pneumonia following a recent COVID-19 infection. The patient initially felt as though she was recovering but then experienced a sudden worsening of symptoms. She reported not
coughing up blood but feeling short of breath, with oxygen saturation recorded at 91-92%. The patient noted fever with a temperature of 101.2�F, with baseline around 97�F. She was last treated with acetaminophen at 1:00 PM, and she mentioned
previous significant illnesses, including pneumonia, within the last two years. A radiologists review of chest X-ray suggested evidence of pneumonia with nodular findings. The patient acknowledged a history of reactions to penicillin, causing rash,
and has concerns about recurrent pneumonia despite receiving a pneumococcal vaccine.
ADDITIONAL HISTORY OBTAINED FROM SOURCES OTHER THAN THE PATIENT
According to the spouse, the patient experienced similar illness over the past two years and recently had a significant decline in health.
PHYSICAL EXAM
- Nursing notes reviewed and vital signs reviewed.
- Temperature: 101.2�F.
- Tachypneic with oxygen saturation at 91% and heart rate of 105 bpm.
- Heart: Regular rhythm.
- Lungs: Grossly clear; tachypneic but not in respiratory distress.
- Cranial nerves: Non-focal.
- No focal motor deficit observed.
- Patient is awake and alert.
PLAN
Administer intravenous antibiotics and fluids to address suspected post-viral bacterial pneumonia. Provide acetaminophen for fever control. Hospital admission recommended due to low oxygen saturation and history of recurrent pneumonia.
DIFFERENTIAL DIAGNOSIS
The Differential Diagnosis includes, in no particular order and is not limited to:
1. Post-viral pneumonia
2. Bacterial pneumonia
3. Chronic obstructive pulmonary disease exacerbation
4. Aspiration pneumonia
5. Lung abscess
6. Pulmonary embolism
7. Bronchitis
8. Heart failure exacerbation
9. Influenza
10. Tuberculosis
Disposition:
SUMMARY OF ENCOUNTER
An 79-year-old female presented with acutely worsening symptoms following a recent COVID-19 infection. Concerns raised for pneumonia due to fever (101.2�F), hypoxia (oxygen saturation at 91%), and leukocytosis (white count at 16,000).
DISPOSITION
Patient admitted for administration of IV antibiotics due to suspected pneumonia and low oxygen saturation.
ASSESSMENT
Suspected post-viral bacterial pneumonia with a history of multiple myeloma, chronic kidney disease, hypertension, hyperlipidemia, and asthma contributing to current health concerns.
EMERGENCY TREATMENTS ADMINISTERED
IV antibiotics initiated, blood culture sent.
MANAGEMENT OF THE PATIENTS CARE WAS DISCUSSED WITH
Case discussed with the hospitalist for admission.
PLAN
Administer intravenous antibiotics and admit for further observation and treatment due to suspected pneumonia and current respiratory status.
INDEPENDENT REVIEW OF LABS AND INTERPRETATION OF TESTS
- My independent review of the CBC shows leukocytosis at 16,000, and consistent platelet values of 115,000 when compared to May 2023 results.
- Chronic kidney disease with a creatinine at 1.4, consistent with previous baseline.
- My independent interpretation of the chest X-ray is ground glass and nodular opacities, suggesting focal or inflammatory pneumonia.
MEDICATION RECONCILIATION
IV antibiotics provided; blood culture performed.
MEDICAL DECISION MAKING
1. Number & Complexity of Problems: Chronic conditions affecting care include multiple myeloma, chronic kidney disease, hypertension, hyperlipidemia, and asthma.
2. Data Reviewed: CBC with leukocytosis and other labs reviewed. Prior medical records indicating previous pneumonia were considered.
3. Risk: Consideration of admission due to the complexity of potential pneumonia and the patients baseline health risks.
PATHOLOGIES TO CONSIDER
- Post-viral pneumonia
- Bacterial pneumonia
- Pulmonary embolism (considered due to dyspnea and recent COVID-19 infection)
Past History
Past History
ED Past Medical History: Cancer, HTN, Hypercholesterolemia and Other (Multiple myeloma/remission)
ED Past Surgical History: Gynecological and Urological
Social History
Tobacco: Former smoker
Alcohol: None
Drug: None
Personal:
Living: with family
Phy Exam
Physical Exam
Physical Exam:
.
Scores
Heart Score for Chest Pain Patients
STEMI patient?: Not applicable
Sepsis
Sepsis Screening
Sepsis Assessment: Sepsis Ruled Out
Sepsis Screen
Sepsis Screen: Sepsis Ruled Out
Date: 07/27/24
Time: 23:19
Course
Orders/Labs/Results
Orders:
Orders
07/27/24 19:20
Electrocardiogram (*1) Urgent
Reason for Study: Chest Pain
Cardiac Monitoring- Treatment ONCE
EKG- Treatment ONCE
IV Insert/Care/Rem.- Treatment PRN
Chest [CR Chest - 2 Views ] Urgent
Comment:
Reason For Exam: chest pain
O2 Therapy [RESP] Urgent
Titrate/Wean O2 to maintain O2 sat greater than (%): 90
Special Instructions: Maintain sats >/=90%
Pulse Ox/spot Check [RESP] Urgent
Quantity: 1
Special Instructions: ON ROOM AIR
07/27/24 19:31
Complete Blood Count/With Diff Urgent
Comprehensive Metabolic Panel Urgent
Troponin I Urgent
07/27/24 21:23
Lactic Acid Urgent
Blood Culture Urgent
BRE Source: Blood/Venous
Specimen Description:
07/27/24 21:29
Blood Culture Urgent
BRE Source: Blood/Venous
Specimen Description:
07/27/24 21:44
0.9% Sodium Chloride 1000 ml [Nss] 1,000 ml IV BOLUS
Acetaminophen [Tylenol] 1,000 mg PO NOW STA
Azithromycin 500 mg/250 ml [Zithromax Infusion] 500 mg in 250 ml IV NOW
CefTRIAXone [Rocephin] 2,000 mg IV NOW STA
07/27/24 21:47
Sterile Water [Sterile Water For Injection] 20 ml .ROUTE .STK-MED
07/27/24 22:46
Admit/Transfer Patient As Directed
Co-Sign Provider:
Level of Care: Inpatient admission
Assign to:: Medical/Surgical
Physician / Group: Hector
Diagnosis: Pneumonia
Reason for Hospitalization: Pneumonia
Expected length of stay greater than two midnights?: Yes
ELOS- Estimated Length of Stay in days: 2
I certify the patient meets the requirements for IP care: Yes
PRN Pain Medication Management As Directed
May give lesser potent ordered pain med per pt: Yes
preference::
Protocol:: Medication orders for pain may be administered in a
manner that supports deferring to patient preference
when the pt is:
- Requesting an ordered lesser potent pain medication.
Least to most potent pain medications are defined
as: acetaminophen < NSAID < tramadol < opioids
(morphine, oxycodone, hydromorphone).
- Requesting a lesser dose of the same medication IF
ORDERED.
- Requesting a less intrusive route of administration
if both routes are prescribed by the provider (PO <
IV).
07/27/24 22:48
Code Status As Directed
Resuscitation Status: Full Code
07/27/24 22:51
COVID-19 Antigen Stat
Source: Nasal Swab
Influenza A+B Rapid Molecular Stat
BRE Source: Nasal Swab
Specimen Description:
MRSA Screen Routine
BRE Source: Nose
Specimen Description:
07/27/24 23:00
Flush (0.9% Sodium Chloride) [Flush (Nss)] See Dose Instructions IV PER PROTOCOL
Abnormal Lab Results
07/27/24
19:31
WBC 15.9 H 10^3/uL
(4.8-10.8)
RBC 4.16 L 10^6/uL
(4.20-5.40)
Plt Count 115 L 10^3/uL
(130-400)
MPV 12.3 H fL
(7.4-10.4)
Abs Immat Gran (auto) 0.4 H 10^3/uL
(0-0.05)
Absolute Neuts (auto) 11.7 H 10^3/uL
(1.4-6.5)
Absolute Lymphs (auto) 0.7 L 10^3/uL
(1.2-3.4)
Absolute Monos (auto) 3.0 H 10^3/uL
(0.1-0.6)
Immature Gran % 2.6 H %
(0-0.5)
Lymphocytes % 4.2 L %
(20.5-51.1)
Monocytes % 19.2 H %
(1.7-9.3)
Chloride 108 H mmol/L
(98-107)
Carbon Dioxide 21 L mmol/L
(22-30)
Creatinine 1.4 H mg/dL
(0.6-1.0)
Glucose 156 H mg/dl
(70-99)
07/27/24 19:31
07/27/24 19:31
Vital Signs
Initial and Last Documented VS:
Initial Vital Signs
Temp Pulse Resp BP Pulse Ox
100.1 F 100 18 153/79 92
07/27/24 19:16 07/27/24 19:16 07/27/24 19:16 07/27/24 19:16 07/27/24 19:16
Last Documented Vital Signs
Temp Pulse Resp BP Pulse Ox
101.2 F H 95 30 113/59 94
07/27/24 21:42 07/27/24 23:00 07/27/24 23:00 07/27/24 23:00 07/27/24 23:05
*Pulse Oximetry
SaO2: 95
Oxygen Mode of Delivery: Room air
*Critical Care Note
Total Time (30-74mins, 75-104mins- exclusive of procedures): Not Applicable
ED Attending Note
-
Portions of this chart may have been created with voice recognition software.� Occasional wrong word or��sound alike� substitutions may have occurred due to the inherent limitations of voice recognition software.
Discharge Plan
Departure
Patient Disposition: Admit
Date of Disposition: 07/27/24
Time of Disposition: 22:19
Admit to: Telemetry
Presentation/result/management discussed w/ accepting MD/DO: Hospitalist
Discharge Problem:
Fever, Pneumonia, CKD (chronic kidney disease), Hypoxia
Prescriptions:
No Action
gabapentin 300 MG capsule
600 mg PO HS
gabapentin 300 MG capsule
300 mg PO DAILY
omeprazole 20 MG capsule,delayed release(DR/EC)
20 mg PO DAILY
simvastatin 20 MG tablet
20 mg PO HS
aspirin 81 MG tablet,delayed release (DR/EC)
81 mg PO HS
acetaminophen [Acetaminophen Extra Strength] 500 MG tablet
1,000 mg PO DAILYPRN PRN (Reason: mild pain)
latanoprost 0.005 % Drops
1 drp BOTH EYES HS
fluticasone propion-salmeterol [Wixela Inhub] 250-50 mcg/dose Blister With Device
1 inh INHALATION R BID
albuterol sulfate [Ventolin HFA] 90 mcg/actuation Hfa Aerosol Inhaler
2 puff INHALATION R Q6HPRN PRN (Reason: sob)
cholecalciferol (vitamin D3) 125 mcg (5,000 unit) Tablet
125 mcg PO QPM
turmeric 400 mg Capsule
400 mg PO QPM
ascorbic acid (vitamin C) [Vitamin C] 1,000 mg Tablet
1,000 mg PO QPM
cyanocobalamin (vitamin B-12) 1,000 mcg Tablet
1,000 mcg PO QPM
magnesium
1 tab PO QPM
Referrals:
Ar Montague MD [Family Provider, Cardiology]
Interventions
Interventions:
*Risk Screen - Suicide Last Done: 07/27/24 19:16
*General Assessment Last Done: 07/27/24 19:16
*Neglect/Abuse Screening Last Done: 07/27/24 19:16
*ED- Fall Risk Assessment Last Done: 07/27/24 20:43
*ED COVID-19 Vaccine History Last Done: 07/27/24 20:43
ED- Cardiac Assessment Last Done: 07/27/24 20:43
Discharge Date and Time
Print Language: BURMESE
--- NOTE | 2024-07-27 22:30 | HPS.HSE ---
Family Physician
-
Family Physician: Ar Montague
Chief Complaint
-
Chest pain
History of Present Illness
This is a 79-year-old with past medical history significant for multiple myeloma, hyperlipidemia, CKD and GERD who presents to the emergency department with chest pain and concern for worsening symptoms after recent bout with COVID-19 pneumonia.
She reported that 1 week ago she had respiratory symptoms and she did a home COVID test which was positive. After about 5 days she states she started to feel better however today she suddenly felt much worse. She stated she all of a sudden
developed shortness of breath, chest pain, abdominal pain, nausea. She reports that she usually has a baseline temp of around 97 and she noted a temp of one 1.2 at home. She denies any sick contacts. She did a second COVID home test today which
was negative.
Last hospitalization was over a year ago when she was admitted for pneumonia.
In the Emergency Department patient had a fever at 101.9, blood pressure was stable at 123 lyses with a pulse of 107 she was satting 95%.
She had a white count of 15.9, hemoglobin and platelets were normal. Electrolytes were normal. BUN/creatinine was stable at 17 and 1.4 with a glucose of 156.
Chest x-ray shows a left upper lobe groundglass opacity of about 1.7 cm and nodular consistent with pneumonia or malignancy.
Medical History
Past Medical History
Past Medical History: Reports Other (multiple myeloma, chronic kidney disease hypertension, hyperlipidemia, GERD)
Past Surgical History: Reports Other (Gynecological and Urological)
Social History
Tobacco: Former Smoker
Alcohol: None
Drug: None
Personal:
Living: With Family
Family History
Family History: Not pertinent
Allergies / Home Medications
Allergies reflects when Allergies were last updated in [employer].
Home Medications with original date entered in [employer]
Allergy/Medication List:
Allergies
Allergy/AdvReac Type Severity Reaction Status Date / Time
iodine Allergy Hives Verified 05/09/23 11:42
Penicillins Allergy Rash Verified 05/09/23 11:42
tetanus toxoid, adsorbed Allergy Swelling Verified 05/09/23 11:42
Home Medications
gabapentin 300 mg capsule 300 mg PO DAILY Neurological Condition 05/21/21
gabapentin 300 mg capsule 600 mg PO HS Neurological Condition 05/21/21
omeprazole 20 mg capsule,delayed release 20 mg PO DAILY Gastrointestinal issue 05/21/21
simvastatin 20 mg tablet 20 mg PO HS High cholesterol 05/21/21
acetaminophen 500 mg tablet (Acetaminophen Extra Strength) 1,000 mg PO DAILYPRN PRN mild pain 07/10/21
aspirin 81 mg tablet,delayed release 81 mg PO HS 07/10/21
Oil Of Oregano 2 cap PO QPM 05/09/23
albuterol sulfate 90 mcg/actuation aerosol inhaler (Ventolin HFA) 2 puff inhalation R Q6HPRN PRN sob 05/09/23
apple cider vinegar 2 tab PO HS 05/09/23
cholecalciferol (vitamin D3) 125 mcg (5,000 unit) tablet 125 mcg PO QPM 05/09/23
cyanocobalamin (vitamin B-12) 1 tab PO QPM 05/09/23
fluticasone 250 mcg-salmeterol 50 mcg/dose blistr powdr for inhalation (Wixela Inhub) 1 inh inhalation R BID 05/09/23
latanoprost 0.005 % eye drops 1 drp BOTH EYES HS 05/09/23
turmeric 400 mg capsule 400 mg PO QPM 05/09/23
Review of Systems
-
Constitutional: Reports No Symptoms
EENT: Reports No Symptoms
Respiratory: Reports Trouble Breathing
Cardiac: Reports Chest Pain
Abdomen/GI: Reports No Symptoms and Abdominal Pain
: Reports No Symptoms
Musculoskeletal: Reports No Symptoms
Skin: Reports No Symptoms
Neurological: Reports No Symptoms
Endocrine: Reports No Symptoms
Hematologic/Lymphatic: Reports No Symptoms
Psych: Reports No Symptoms
Physical Exam
Vital Signs
Vital Signs
Temp Pulse Resp BP Pulse Ox
101.2 F H 107 21 123/63 95
07/27/24 21:42 07/27/24 22:00 07/27/24 22:00 07/27/24 22:00 07/27/24 22:17
Physical Exam
General: Well Developed, Well Nourished and No Apparent Distress
HEENT: NormoCephalic, Moist mucous membranes and Atraumatic
Respiratory: Clear
Cardiac: S1/S2 and Regular Rhythm; No Murmur or Rub
GI: Soft, Non Tender, Non Distended and Normal Bowel Sounds; No Organomegaly
Rectal: Deferred by Provider
Musculoskeletal: No Clubbing, No Cyanosis and No Edema
Skin: No Rash
Neuro: Nonfocal/grossly intact
Laboratory Results
-
07/27/24 19:31
07/27/24 19:31
Laboratory Results
Lactic Acid 0.9 mmol/L (0.7-2.0) 07/27/24 21:23
Total Bilirubin 0.9 mg/dl (0.2-1.3) 07/27/24 19:31
AST 18 U/L (14-36) 07/27/24 19:31
ALT 17 U/L (0-35) 07/27/24 19:31
Alkaline Phosphatase 53 U/L (38-126) 07/27/24 19:31
Troponin I < 0.012 ng/ml 07/27/24 19:31
Data Reviewed
-
Diagnostic Radiology: Image Personally Visualized and interpreted and Report Reviewed by me
Medical Tests (Nuc Med, Echo, EKG etc): Image Personally Visualized and interpreted
Lab Data: Labs Reviewed by me
Old Records: Reviewed
Impression/Plan
-
IMPRESSION:
79-year-old generally healthy female who presents to the emergency department with shortness of breath fever chills chest pain approximately 1 week after having a positive COVID test at home. Chest x-ray shows a left upper lobe opacity, groundglass
nodularity consistent with pneumonia. She is not hypoxic. However she is febrile and initially tachycardic. Remains hemodynamically stable. Has prior history of pneumonia.
PLAN:
Pneumonia -coronary pneumonia/postviral infection
-Admit to [facility]
-Start ceftriaxone/azithromycin
-Urine Legionella and pneumococcal antigens
- mrsa swab
-Check COVID and flu
-IV fluids,
-Supportive measures
DVT - PPX - heparin sq
Code status - Full Code
[2024-07-27 23:00] VITALS: BP 113/59
[2024-07-27 23:44] LABS: COVID-19 Antigen Negative (Negative)
[2024-07-28 00:27] VITALS: BMI 28.3
[2024-07-28 00:28] VITALS: BP 95/68
[2024-07-28] MEDS: HEPARIN 5000 UNITS SC ×4 (00:35→23:10)
[2024-07-28] MEDS: ROBITUSSIN 200 MG PO ×3 (00:35→16:49)
--- NOTE | 2024-07-28 00:40 | PTCARENOTE ---
Pt. arriving to from ED via stretcher and able to ambulate to room bed with steady gait and no device. Patient clarified her at home positive covid test was 2 weeks ago, specifically on 07/10/24. Covid swab negative in ER and negative for influenza
A+B, taken off respiratory isolation per policy. MRSA swab pending results, however pt. was cleared of MRSA isolation in 2015. NS bolus finishing upon arrival, VSS, pt. in NAD, occasional mild moist cough without sputum production, bed locked and in
lowest position, side rails in place, call light and personal belongings within reach. Questions addressed at time of assessment and plan of care reviewed with patient who verbalized her understanding.
[2024-07-28] MEDS: TYLENOL 650 MG PO ×2 (06:08→16:49)
[2024-07-28 06:53] LABS: Hematocrit 33.3 % (37.0-47.0); Hemoglobin 11.2 g/dL (12.0-16.0); Mean Corp Hgb Conc. 33.6 g/dL (33.0-37.0); Mean Corpuscular Hgb 31.1 pg (27.0-31.0); Mean Corpuscular Volume 92.5 fL (81.0-99.0); Mean Platelet Volume 13.1 fL (7.4-10.4); Platelet Count 108 10^3/uL (130-400); Red Cell Dist. Width 13.7 % (11.5-14.5); White Blood Cell Count 14.8 10^3/uL (4.8-10.8)
[2024-07-28 07:07] LABS: Blood Urea Nitrogen 14 mg/dl (7-17); Calcium 8.6 mg/dl (8.4-10.2); Carbon Dioxide 21 mmol/L (22-30); Chloride 113 mmol/L (98-107); Estimated Creatinine Clearance 31 ml/min; Glucose 120 mg/dl (70-99); Potassium 3.8 mmol/L (3.5-5.1); Sodium 140 mmol/L (135-145)
[2024-07-28 07:15] VITALS: BP 109/55
[2024-07-28] MEDS: ADVAIR HFA 115/21 MCG INHALER 1 PUFF INH ×2 (07:54→19:54)
[2024-07-28] MEDS: PROTONIX 40 MG PO (08:10)
[2024-07-28] MEDS: MUCINEX 600 MG PO ×2 (08:10→19:41)
[2024-07-28] MEDS: NEURONTIN 300 MG PO ×2 (08:11→21:59)
--- NOTE | 2024-07-28 11:11 | W.PN.HOSP.TC ---
Today's Communication/Plan
-
Antibiotics. Steroids.
Assessment / Plan
Assessment / Plan
Physical exam:
General: Well Developed, Well Nourished and No Apparent Distress
HEENT: Normocephalic, Atraumatic and Moist Mucous Membranes
Respiratory: Clear to Auscultation; Negative Wheezes, Rales or Rhonchi
Cardiac: Regular Rhythm and S1/S2
GI: Soft, Nontender and Nondistended
Musculoskeletal: No Clubbing, No Cyanosis and No Edema
Neuro: Awake, Alert and Oriented
Psych: Calm
A/P:
Pneumonia:
Continue IV Rocephin and azithromycin
Follow-up rest of workup
COVID-19 and flu negative
Mild asthma exacerbation:
Continue bronchodilator
Add oral prednisone
Abnormal chest x-ray:
Will need follow-up chest x-ray or CT after treatment
Hyperlipidemia:
Continue statin
GERD:
Continue PPI
DVT prophylaxis:
Heparin SQ
CODE STATUS:
Full code
Anticipated Discharge: 24 - 48 hours
Subjective/Interval History
-
Date of Service: July 28, 2024
Patient still having some cough with sputum production. She is also having some wheezing. Afebrile
Objective Data
-
Labs:
Laboratory Results
07/28/24
06:07
WBC 14.8 H
Hgb 11.2 L
Hct 33.3 L
Plt Count 108 L
Sodium 140
Potassium 3.8
Chloride 113 H
Carbon Dioxide 21 L
BUN 14
Creatinine 1.4 H
Glucose 120 H
Calcium 8.6
Vital Signs:
Vital Signs
Temp Pulse Resp BP Pulse Ox
98.6 F 86 18 109/55 94
07/28/24 07:15 07/28/24 07:56 07/28/24 07:56 07/28/24 07:15 07/28/24 09:00
I&O
07/27/24 07/28/24 07/29/24
06:59 06:59 06:59
Output Total 400 / 400
Balance -400 / -400
[2024-07-28] MEDS: DELTASONE 40 MG PO (13:01)
--- NOTE | 2024-07-28 13:59 | CM ---
Initial assessment completed with patient who lives with her in a 1 story ranch home plus basement with 2 steps to enter. [employer] patient was independent in ADL's and ambulation drives and works. No DME or in-home services. Support system is
and 3 sons in the area. Does have a HC-POA. No service. PCP is Dr. Ar Montague and Pharmacy is [facility] in [place]. Discharge POC: Home with no needs.
[2024-07-28 15:05] VITALS: BP 139/43
[2024-07-28] MEDS: ASPIR LOW (ENTERIC COATED) 81 MG PO (21:58)
[2024-07-28] MEDS: ZITHROMAX INFUSION 250 IV (21:59)
[2024-07-28] MEDS: ROCEPHIN 1000 MG IV (21:59)
[2024-07-28] MEDS: LIPITOR 10 MG PO (21:59)
[2024-07-28] MEDS: STERILE WATER FOR INJECTION 10 ML IV (21:59)
[2024-07-28 23:12] VITALS: BP 129/68
[2024-07-29 05:54] LABS: Hematocrit 33.4 % (37.0-47.0); Mean Corp Hgb Conc. 32.9 g/dL (33.0-37.0); Mean Corpuscular Hgb 30.3 pg (27.0-31.0); Mean Platelet Volume 12.6 fL (7.4-10.4); Platelet Count 102 10^3/uL (130-400); Red Blood Cell Count 3.63 10^6/uL (4.20-5.40); Red Cell Dist. Width 13.5 % (11.5-14.5); White Blood Cell Count 10.3 10^3/uL (4.8-10.8)
[2024-07-29 06:16] LABS: Blood Urea Nitrogen 17 mg/dl (7-17); Calcium 8.7 mg/dl (8.4-10.2); Carbon Dioxide 17 mmol/L (22-30); Chloride 114 mmol/L (98-107); Estimated Creatinine Clearance 36 ml/min; Glucose 123 mg/dl (70-99); Potassium 3.8 mmol/L (3.5-5.1); Sodium 141 mmol/L (135-145); eGFR 45.48
[2024-07-29 07:20] VITALS: BP 129/63
[2024-07-29 07:29] LABS: % Basophils 0.1 % (0-2); % Eosinophils 0.1 % (0-6); % Immature Granulocytes 4.3 % (0-0.5); % Lymphocytes 5.2 % (20.5-51.1); % Monocytes 5.5 % (1.7-9.3); % Neutrophils 84.8 % (42.2-75.2); Absolute Immature Granulocytes 0.4 10^3/uL (0-0.05); Absolute Lymphocytes 0.5 10^3/uL (1.2-3.4); Absolute Monocytes 0.6 10^3/uL (0.1-0.6); Absolute Neutrophils 8.7 10^3/uL (1.4-6.5); Nucleated Red Blood Cells % 0 %
[2024-07-29] MEDS: ADVAIR HFA 115/21 MCG INHALER 1 PUFF INH (08:12)
[2024-07-29] MEDS: PROTONIX 40 MG PO (08:51)
[2024-07-29] MEDS: NEURONTIN 300 MG PO (08:51)
[2024-07-29] MEDS: HEPARIN 5000 UNITS SC (08:51)
[2024-07-29] MEDS: MUCINEX 600 MG PO (08:51)
[2024-07-29] MEDS: DELTASONE 40 MG PO (08:52)
[2024-07-29] MEDS: ROBITUSSIN 200 MG PO (09:07)
[2024-07-29] MEDS: OMNICEF 300 MG PO (11:05)
--- NOTE | 2024-07-29 11:13 | W.PN.HOSP.TC ---
Today's Communication/Plan
-
Discharge planning today
Assessment / Plan
Assessment / Plan
Physical exam:
General: Well Developed, Well Nourished and No Apparent Distress
HEENT: Normocephalic, Atraumatic and Moist Mucous Membranes
Respiratory: Clear to Auscultation; Negative Wheezes, Rales or Rhonchi
Cardiac: Regular Rhythm and S1/S2
GI: Soft, Nontender and Nondistended
Musculoskeletal: No Clubbing, No Cyanosis and No Edema
Neuro: Awake, Alert and Oriented
Psych: Calm
A/P:
Pneumonia:
Change IV antibiotics to oral
Workup completed
COVID-19 and flu negative
Plan to discharge today
Mild asthma exacerbation:
Continue bronchodilator
Continue oral prednisone
Abnormal chest x-ray:
Lung nodule likely related to current infection but not entirely clear so will need follow-up chest x-ray after acute illness
Hyperlipidemia:
Continue statin
GERD:
Continue PPI
DVT prophylaxis:
Heparin SQ
CODE STATUS:
Full code
Anticipated Discharge: Today
Subjective/Interval History
-
Date of Service: July 29, 2024
Patient is improving. Less shortness of breath and cough. Pulse ox normal on room air. Afebrile
Objective Data
-
Labs:
Laboratory Results
07/29/24
05:02
WBC 10.3
Hgb 11.0 L
Hct 33.4 L
Plt Count 102 L
Sodium 141
Potassium 3.8
Chloride 114 H
Carbon Dioxide 17 L
BUN 17
Creatinine 1.2 H
Glucose 123 H
Calcium 8.7
Vital Signs:
Vital Signs
Temp Pulse Resp BP Pulse Ox
97.8 F 88 16 129/63 95
07/29/24 07:20 07/29/24 08:13 07/29/24 08:13 07/29/24 07:20 07/29/24 07:20
I&O
07/28/24 07/29/24 07/30/24
06:59 06:59 06:59
Intake Total 900 / 900
Output Total 400 / 400
Balance 500 / 500
--- NOTE | 2024-07-29 11:18 | W.DCSUMMARY ---
Discharge Summary
Discharge Data
Date of Admission: 07/27/24
Date of Discharge: 07/29/24
Total time spent discharging patient (in min): 31
-
Pending Results: No
Hospital Course
Patient 79 years old female with history of multiple myeloma, CKD, GERD, came into the hospital cough and shortness of breath and found to have pneumonia. She was treated with IV antibiotics. She also had some wheezing related to asthma and
started on oral steroids. Her WBC trended down from 16,000 to 10,000. Patient symptomatically improved. Her Streptococcus and Legionella and sputum culture unremarkable as well as influenza and COVID-19 and MRSA screen and blood cultures sterile.
She did have an abnormal chest x-ray likely related to infectious process but would recommend to repeat chest x-ray in 4 to 8 weeks to ensure resolution. Patient will be discharged in stable condition today.
Discharge duration: 31 minutes
Discharge Plan
-
Patient Disposition: Home (Routine Discharge)
Discharge Diagnosis/Procedures: Pneumonia. Asthma exacerbation. Pulmonary nodule.
Diet: Low Cholesterol
Activity: As tolerated
Blood Work: Please PCP to order CBC, BMP within 1 week
Others Tests: Please PCP to order a repeat chest x-ray in 1 to 2 months.
Referrals:
Ar Montague MD [Family Provider, Cardiology] - in less than 1 week
Prescriptions:
New
cefdinir 300 mg Capsule
300 mg PO Q12 5 Days Qty: 10 0RF
azithromycin 500 mg tablet
500 mg PO DAILY 3 Days Qty: 3 0RF
dextromethorphan-guaifenesin [Robitussin Elderberry Max DM] 5-100 mg/5 mL liquid
10 ml PO Q6H PRN (Reason: Cough) Qty: 1000 0RF
prednisone 10 mg Tablet
See Rx Instructions .ROUTE .COMPLEX Qty: 30 0RF
Rx Instructions:
Take By Mouth:
40 mg daily x3 days, 30 mg daily x3 days,
20 mg daily x3 days, 10 mg daily x3 days.
Continued
gabapentin 300 MG capsule
600 mg PO HS
gabapentin 300 MG capsule
300 mg PO DAILY
omeprazole 20 MG capsule,delayed release(DR/EC)
20 mg PO DAILY
simvastatin 20 MG tablet
20 mg PO HS
aspirin 81 MG tablet,delayed release (DR/EC)
81 mg PO HS
acetaminophen [Acetaminophen Extra Strength] 500 MG tablet
1,000 mg PO DAILYPRN PRN (Reason: mild pain)
latanoprost 0.005 % Drops
1 drp BOTH EYES HS
fluticasone propion-salmeterol [Wixela Inhub] 250-50 mcg/dose Blister With Device
1 inh INHALATION R BID
albuterol sulfate [Ventolin HFA] 90 mcg/actuation Hfa Aerosol Inhaler
2 puff INHALATION R Q6HPRN PRN (Reason: sob)
cholecalciferol (vitamin D3) 125 mcg (5,000 unit) Tablet
125 mcg PO QPM
turmeric 400 mg Capsule
400 mg PO QPM
ascorbic acid (vitamin C) [Vitamin C] 1,000 mg Tablet
1,000 mg PO QPM
cyanocobalamin (vitamin B-12) 1,000 mcg Tablet
1,000 mcg PO QPM
magnesium
1 tab PO QPM
Discharge Orders:
Discharge Patient (As Directed); Ordered 07/29/24
Ordered By: Lucio Soto
Discharge Date and Time
Print Language: MACEDONIAN
[2024-07-29 11:28] VITALS: BP 133/61
--- NOTE | 2024-07-29 12:21 | CM ---
Patient has been medically cleared for discharge to home with no additional skilled services. Family will transport home.
== END 2024-07-29 13:36 | disposition home or self-care (01) | DRG 194 ==
LOC: 2 NORTH 23:17
PROVIDERS: Student in an Organized Health Care Education/Training Program; ADMITTING PHYSICIAN Internal Medicine; ATTENDING PHYSICIAN Hospitalist; EMERGENCY PHYSICIAN Emergency Medicine; FAMILY PHYSICIAN Internal Medicine Cardiovascular Disease
DX: J18.9 Pneumonia, unspecified organism (principal); J45.901 Unspecified asthma with (acute) exacerbation; R91.1 Solitary pulmonary nodule; E78.00 Pure hypercholesterolemia, unspecified; K21.9 Gastro-esophageal reflux disease without esophagitis; I12.9 Hypertensive chronic kidney disease with stage 1 through stage 4 chronic kidney disease, or unspecified chronic kidney disease; N18.9 Chronic kidney disease, unspecified; Z87.891 Personal history of nicotine dependence; Z79.899 Other long term (current) drug therapy; Z11.52 Encounter for screening for COVID-19
CPT/HCPCS: 71046; 80048; 80053; 83605; 84484; 85025; 85027; 87040; 87070; 87205; 87449; 87502; 87811; 87899; 93005; 94640; 96361; 96374; 96375; 97161; 99285

== ENCOUNTER 2024-11-12 04:40 | Emergency (ER) | payer MEDICARE, OTHER, SELFPAY ==
[2024-11-12 04:42] VITALS: BP 124/80
[2024-11-12 04:55] VITALS: BP 118/70
[2024-11-12 04:57] VITALS: BMI 27.8
[2024-11-12 05:00] VITALS: BP 117/59
--- NOTE | 2024-11-12 05:15 | ED.GENMED ---
History of Present Illness
General
Chief Complaint: Abdominal Symptoms
Source: patient and spouse
Exam Limitations: none
Time Seen by Provider: 11/12/24 04:50
Nursing documentation reviewed up to this point in time: agreed with except (Patient underwent right hemicolectomy, right appendectomy November 05 at [facility].)
History of Present Illness
History of Present Illness:
This is an 79-year-old woman who resides at home with her . She has history of multiple myeloma, asthma, chronic kidney disease, hyperlipidemia, GERD as well as history of hepatic flexure colon cancer for which she underwent a right
hemicolectomy as well as appendectomy on November 05. Surgery performed by colorectal surgeon, Dr. Tinsley at [facility]. She was discharged to home November 07.
Since her discharge, the patient reports persistent nausea which has intensified over the past several days causing difficulty eating and drinking adequately. She has had some generalized lower abdominal pain, worse with movement. She reports
moderate nausea but has had no vomiting. She has been passing loose stools, no hematochezia, denies black or tarry stools. She has not had a fever. She denies dizziness nor lightheadedness. She has been urinating normally. No chest pain or
cough no shortness of breath. No leg pain or swelling. She does admit to minimal activity, overall noting significant nausea and engaging in minimal daily activities but has been able to get up and go to the bathroom without difficulty.
She has been prescribed Percocet for pain. She states she took 1 dose, since then she has been taking Tylenol for pain. She has not been taking anything for nausea.
She admits that she has not attempted to contact her surgeon.
Past History
Past History
ED Past Medical History: Asthma, Cancer (Multiple myeloma, left breast cancer status postlumpectomy 2014; bladder cancer status post transurethral resection of the bladder tumor. Colon cancer status post right hemicolectomy October 2024), HTN,
Hypercholesterolemia, Renal failure (Chronic kidney disease stage III) and Other (Multiple myeloma/remission)
ED Past Surgical History: Bowel resection (Right hemicolectomy with appendectomy November 05, 2024), Gynecological (Left breast cancer status post lumpectomy 2014), Orthopedic, Urological (Bladder cancer status post transurethral resection of
bladder tumor) and Other (Paraesophageal hernia repair 2015)
Social History
Tobacco: Former smoker
Alcohol: None
Drug: None
Personal:
Living: with family
Employment: Retired
Family History
Family History: Other (Noncontributory)
Phy Exam
Physical Exam
Physical Exam:
GENERAL: 79-year-old female appears her stated age, awake and alert, appears mildly uncomfortable, frequently complaining of nausea. Easily communicative. is accompanying.
EYE: pupils equal and reactive. anicteric
NECK: Supple, nontender, no meningismus, no significant adenopathy.
ENT: posterior pharynx is clear, oral mucosa is mildly dry. No rhinorrhea.
CARDIAC: Regular rate and rhythm. no murmur.
LUNGS: Clear breath sounds bilaterally, no acute respiratory distress, no wheezes/rales/rhonchi
ABDOMEN: Rotund, soft, nondistended, mild tenderness generalized to the lower abdomen, no r/g, no cvat. normoactive BS.
NEUROLOGICAL: Alert and oriented x3, no focal neuro deficits. Gait is steady.
SKIN: Warm and dry, normal color, skin intact. No rash.
MUSCULOSKELETAL: No C/C/E. peripheral pulses are full and equal b/l. No palpable tenderness.
PSYCH: Normal and appropriate interaction.
Course
Orders/Labs/Results
Orders:
Orders
11/12/24 05:11
0.9% Sodium Chloride 1000 ml [Nss] 1,000 ml IV 125 mls/hr
Ondansetron Injectable [Zofran] 4 mg IV NOW STA
11/12/24 05:14
Complete Blood Count/With Diff Urgent
Comprehensive Metabolic Panel Urgent
Lactic Acid Urgent
Lipase Urgent
Magnesium Urgent
Manual Differential Urgent
11/12/24 06:19
CT Abd/pelvis W Iv Cont Urgent
Comment:
Reason For Exam: nausea, abd pain s/p R colectomy 11/05
Diphenhydramine [Benadryl] 50 mg IV NOW STA
Hydrocortisone Sod Succinate [Solu-Cortef] 200 mg IV NOW STA
11/12/24 06:22
Metoclopramide [Reglan] 5 mg IV NOW STA
Abnormal Lab Results
11/12/24
05:14
RBC 3.51 L 10^6/uL
(4.20-5.40)
Hgb 10.4 L g/dL
(12.0-16.0)
Hct 31.8 L %
(37.0-47.0)
MCHC 32.7 L g/dL
(33.0-37.0)
Plt Count 126 L 10^3/uL
(130-400)
MPV 12.5 H fL
(7.4-10.4)
Lymphocytes (Manual) 13 L %
(20-51)
Monocytes (Manual) 14 H %
(2-9)
Chloride 112 H mmol/L
(98-107)
Carbon Dioxide 17 L mmol/L
(22-30)
Creatinine 1.4 H mg/dL
(0.6-1.0)
Glucose 128 H mg/dl
(70-99)
11/12/24 05:14
11/12/24 05:14
Vital Signs
Initial and Last Documented VS:
Initial Vital Signs
Pulse Resp BP Pulse Ox
106 24 124/80 98
11/12/24 04:42 11/12/24 04:42 11/12/24 04:42 11/12/24 04:42
Last Documented Vital Signs
Temp Pulse Resp BP Pulse Ox
97.5 F 82 20 135/81 99
11/12/24 11:09 11/12/24 11:09 11/12/24 11:09 11/12/24 11:09 11/12/24 11:09
MDM/Problems Addressed
Differential Diagnosis Includes:
Differential diagnosis includes, in no particular order and is not limited to:
Post operative ileus
Adhesive small bowel obstruction
Anastomotic leak
Functional bowel disorder
Electrolyte abnormality
Medication related nausea
Infection�intra-abdominal or systemic
Metabolic disturbance due to underlying hematologic malignancy/multiple myeloma
MDM/Problems Addressed:
Postoperative nausea
Postoperative abdominal pain
Will initiate IV fluids, will give an IV dose of Zofran for nausea. Will check labs.
Consider imaging�obstruction series versus CT abdomen pelvis depending on clinical course and laboratory studies.
Chronic conditions affecting care:
Hepatic flexure colon cancer status post right hemicolectomy
Multiple myeloma
History of GERD/history of paraesophageal hernia repair
Chronic conditions affecting care: HTN, Asthma, Previous abdomnial surgery, Kidney disease (Chronic kidney disease stage III) and Cancer
*Radiology
Radiology exam reviewed: radiology read reviewed
*Pulse Oximetry
SaO2: 98
Oxygen Mode of Delivery: Room air
Patient hypoxic: no
*Drywall [employer]ator Interpretation
Rate: normal
Interpretation: normal
Rhythm: sinus
*Critical Care Note
Total Time (30-74mins, 75-104mins- exclusive of procedures): Not Applicable
Update Note
Update Note:
06:20
Patient continues with significant nausea, unrelieved with Zofran. She continues to have no episodes of vomiting.
Abdomen is soft with mild to moderate tenderness right upper quadrant.
Labs are overall reassuring with normal white blood cell count, mild but stable anemia with hemoglobin of 10.4.
Chemistries show mild acidosis with CO2 of 17, similar to previous. Creatinine of 1.4, near her baseline. Normal sodium, normal potassium.
Will continue IV fluids, will trial an IV dose of Reglan and will plan for CT abdomen pelvis with IV contrast.
Patient has history of IV contrast allergy but has successfully received IV contrast with pretreatment for contrast allergy. Will give an IV dose of hydrocortisone and Benadryl.
CT showing postoperative changes but no evidence of abscess nor obstruction. Moderate sized hiatal hernia is noted.
Patient feeling improved after IV Reglan.
Discharge to home with prescription for oral Reglan for as needed nausea.
Encouraged prompt follow-up with her colorectal surgeon.
ED Attending Note
-
Portions of this chart may have been created with voice recognition software.� Occasional wrong word or��sound alike� substitutions may have occurred due to the inherent limitations of voice recognition software.
Discharge Plan
Departure
Patient Disposition: Home (Routine Discharge)
Date of Disposition: 11/12/24
Time of Disposition: 10:06
Patient with high blood pressure during this ER visit?: No
Condition: Good
Discharge Problem:
Nausea in adult, Postoperative nausea
Instructions: Nausea and Vomiting, Adult (DC)
Prescriptions:
New
metoclopramide HCl [Reglan] 10 mg tablet
10 mg PO Q8HPRN PRN (Reason: nausea and vomiting) Qty: 14 0RF
No Action
gabapentin 300 MG capsule
600 mg PO HS
gabapentin 300 MG capsule
300 mg PO DAILY
omeprazole 20 MG capsule,delayed release(DR/EC)
20 mg PO DAILY
simvastatin 20 MG tablet
20 mg PO HS
aspirin 81 MG tablet,delayed release (DR/EC)
81 mg PO HS
acetaminophen [Acetaminophen Extra Strength] 500 MG tablet
1,000 mg PO DAILYPRN PRN (Reason: mild pain)
latanoprost 0.005 % Drops
1 drp BOTH EYES HS
fluticasone propion-salmeterol [Wixela Inhub] 250-50 mcg/dose Blister With Device
1 inh INHALATION R BID
albuterol sulfate [Ventolin HFA] 90 mcg/actuation Hfa Aerosol Inhaler
2 puff INHALATION R Q6HPRN PRN (Reason: sob)
cholecalciferol (vitamin D3) 125 mcg (5,000 unit) Tablet
125 mcg PO QPM
turmeric 400 mg Capsule
400 mg PO QPM
ascorbic acid (vitamin C) [Vitamin C] 1,000 mg Tablet
1,000 mg PO QPM
cyanocobalamin (vitamin B-12) 1,000 mcg Tablet
1,000 mcg PO QPM
magnesium
1 tab PO QPM
dextromethorphan-guaifenesin [Robitussin Elderberry Max DM] 5-100 mg/5 mL liquid
10 ml PO Q6H PRN (Reason: Cough) Qty: 1000 0RF
Referrals:
Ar Montague MD [Family Provider, Family Practice]
Activity Restrictions/Additional Instructions:
Call your surgeon if you had any further questions or nausea. Take the nausea medicine every 8 hours as needed
Interventions
Interventions:
*Risk Screen - Suicide Last Done: 11/12/24 04:42
*General Assessment Last Done: 11/12/24 04:57
*Neglect/Abuse Screening Last Done: 11/12/24 04:42
*ED- Fall Risk Assessment Last Done: 11/12/24 04:57
*ED COVID-19 Vaccine History Last Done: 11/12/24 04:57
*ED Influenza Vaccine History Last Done: 11/12/24 04:57
*Nursing Disposition Last Done: 11/12/24 10:18
OV-Dmgnnu-Tvtdeadiws Assessment Last Done: 11/12/24 04:59
Discharge Date and Time
Discharge Date/Time: 11/12/24 11:09
Print Language: [id number]
[2024-11-12] MEDS: ZOFRAN 4 MG IV (05:30)
[2024-11-12] MEDS: NSS 1000 IV (05:30)
[2024-11-12 05:45] LABS: Hematocrit 31.8 % (37.0-47.0); Hemoglobin 10.4 g/dL (12.0-16.0); Mean Corp Hgb Conc. 32.7 g/dL (33.0-37.0); Mean Corpuscular Volume 90.6 fL (81.0-99.0); Platelet Count 126 10^3/uL (130-400); Red Cell Dist. Width 13.8 % (11.5-14.5)
[2024-11-12 05:48] LABS: ALT (SGPT) 14 U/L (0-35); AST (SGOT) 17 U/L (14-36); Albumin 4.0 g/dl (3.5-5.0); Alkaline Phosphatase 60 U/L (38-126); Blood Urea Nitrogen 13 mg/dl (7-17); Calcium 9.0 mg/dl (8.4-10.2); Carbon Dioxide 17 mmol/L (22-30); Chloride 112 mmol/L (98-107); Estimated Creatinine Clearance 30 ml/min; Glucose 128 mg/dl (70-99); Lipase 77 U/L (23-300); Magnesium 2.0 mg/dl (1.6-2.3); Potassium 3.5 mmol/L (3.5-5.1); Sodium 140 mmol/L (135-145); Total Protein 6.6 g/dl (6.3-8.2); eGFR 37.80
[2024-11-12 06:00] VITALS: BP 123/66
[2024-11-12 06:11] LABS: Absolute Neutrophils -Man Diff 5.1 10^3/uL (1.4-6.5); Normal RBC Morphology Yes; Platelets Checked Yes; Total Cells Counted 100
[2024-11-12] MEDS: SOLU-CORTEF 200 MG IV (06:36)
[2024-11-12] MEDS: BENADRYL 50 MG IV (06:37)
[2024-11-12] MEDS: REGLAN 5 MG IV (06:37)
[2024-11-12 11:09] VITALS: BP 135/81
== END 2024-11-12 11:09 | disposition home or self-care (01) ==
LOC: EMR 04:40
PROVIDERS: EMERGENCY PHYSICIAN Emergency Medicine; FAMILY PHYSICIAN Family Medicine
DX: K91.89 Other postprocedural complications and disorders of digestive system (principal); R11.0 Nausea; D64.9 Anemia, unspecified; E87.20 Acidosis, unspecified; C18.3 Malignant neoplasm of hepatic flexure; I12.9 Hypertensive chronic kidney disease with stage 1 through stage 4 chronic kidney disease, or unspecified chronic kidney disease; N18.30 Chronic kidney disease, stage 3 unspecified; E78.00 Pure hypercholesterolemia, unspecified; J45.909 Unspecified asthma, uncomplicated; K21.9 Gastro-esophageal reflux disease without esophagitis; K44.9 Diaphragmatic hernia without obstruction or gangrene; Z87.891 Personal history of nicotine dependence; C90.00 Multiple myeloma not having achieved remission; Z85.3 Personal history of malignant neoplasm of breast; Z85.51 Personal history of malignant neoplasm of bladder; Z90.49 Acquired absence of other specified parts of digestive tract; Z91.041 Radiographic dye allergy status
CPT/HCPCS: 99284; 96374; 96375 ×3; 96361 ×4; 74177; 80053; 83605; 83690; 83735; 85025; Q9967

== ENCOUNTER → 2025-01-16 10:49 | Outpatient (REF) | payer MEDICARE, OTHER, SELFPAY | LOC: RAD 10:49 | PROVIDERS: ATTENDING PHYSICIAN Family Medicine | DX: M54.9 Dorsalgia, unspecified (principal); C18.9 Malignant neoplasm of colon, unspecified; C90.01 Multiple myeloma in remission; Z85.3 Personal history of malignant neoplasm of breast; N18.32 Chronic kidney disease, stage 3b | CPT/HCPCS: 72110 ==

== ENCOUNTER → 2025-01-26 11:44 | Outpatient (REF) | payer MEDICARE, OTHER, SELFPAY | LOC: RAD 11:44 | PROVIDERS: ATTENDING PHYSICIAN Student in an Organized Health Care Education/Training Program | DX: R05.1 Acute cough (principal) | CPT/HCPCS: 71046 ==